=== PATIENT | male | born 1945 | race Caucasian/White ===

== ENCOUNTER 2017-02-15 08:15 | Day surgery (SDC) | payer OTHER ==
[2017-02-15] VITALS (9 sets, daily range): BP systolic 113–126; BP diastolic 80–86; PULSE 92–104; RESP 16; TEMP 97–97.8; O2SAT 95–96
[~2017-02-15] VITALS: Ht 175.3 cm; Wt 68.9 kg
[2017-02-15] MEDS ORDERED: SODIUM CHLORID 0.9% 500 ML INJ 500 ML IV SCH (09:00)
[2017-02-15] MEDS ORDERED: ATOR40TA16 PO (09:03)
[2017-02-15] MEDS ORDERED: APIX5TAB PO (09:03)
[2017-02-15] MEDS ORDERED: CHLO25TA2 PO (09:03)
[2017-02-15] MEDS ORDERED: FISHCAP4 PO (09:03)
[2017-02-15] MEDS ORDERED: LISI40TA PO (09:03)
[2017-02-15] MEDS ORDERED: METO50TA PO (09:03)
[2017-02-15] MEDS ORDERED: LORazepam 1 MG TAB SL SCH (09:30)
[2017-02-15] MEDS ORDERED: METOPROLOL TARTRATE 25 MG TAB PO PRN (09:45)
[2017-02-15] MEDS ORDERED: POVIDONE IODINE 5% (ANTISEPSIS KIT) 4 APPLICATIONS EACH NARE PRN (09:45)
[2017-02-15] MEDS ORDERED: INSULIN HUMAN REGULAR 1,000 UNITS/10 ML VIAL SQ PRN (09:45)
[2017-02-15] MEDS ORDERED: CHLORHEXIDINE GLUCONATE 2 % 1 PACK (2 CLOTHS) TOPICAL PRN (09:45)
[2017-02-15] MEDS ORDERED: LACTATED RINGER'S 1000 ML IV PRN (09:45)
[2017-02-15] MEDS ORDERED: SODIUM CHLORID 0.9% 500 ML IV PRN (09:45)
[2017-02-15 10:15] LABS: AUTOMATED NEUTROPHIL # 3.2 TH/MM3 (1.8-7.7); BASOPHIL # 0.1 TH/MM3 (0-0.2); BASOPHIL % 2.2 % (0.0-2.0); EOSINOPHIL % 0.8 % (0.0-4.0); HEMO FLAGS DIFF FINAL; LYMPH % 25.4 % (9.0-44.0); LYMPHOCYTE # 1.4 TH/MM3 (1.0-4.8); MEAN CELL VOLUME 88.6 FL (80.0-100.0); MEAN CORPUSCULAR HEMOGLOBIN 30.4 PG (27.0-34.0); MEAN CORPUSCULAR HGB CONC 34.4 % (32.0-36.0); MONO % 15.2 % (0.0-8.0); NEUT % 56.4 % (16.0-70.0); PLATELET COUNT 162 TH/MM3 (150-450); RED BLOOD COUNT 5.54 MIL/MM3 (4.50-5.90); RED CELL DISTRIBUTION WIDTH 15.3 % (11.6-17.2); WHITE BLOOD COUNT 5.6 TH/MM3 (4.0-11.0)
[2017-02-15 10:31] LABS: INTERNATIONAL NORMALIZED RATIO 1.1 RATIO; PROTHROMBIN TIME - PATIENT 11.7 SEC (9.8-11.6)
[2017-02-15 10:32] LABS: APTT (PATIENT) 19.7 SEC (24.3-30.1)
[2017-02-15 10:44] LABS: BICARBONATE 29.7 MEQ/L (21.0-32.0)
[2017-02-15 10:45] LABS: POTASSIUM 4.7 MEQ/L (3.5-5.1)
[2017-02-15] MEDS ORDERED: HEPARIN-D5W 25,000 U/250 ML 250 ML ONE (11:02)
[2017-02-15] MEDS ORDERED: ISOPROTERENOL HCL 1 MG/5 ML AMP ONE (11:02)
[2017-02-15] MEDS ORDERED: HEPARIN SODIUM - IV 10,000 UNITS/10 ML VIAL ONE (11:03)
[2017-02-15] MEDS ORDERED: PROTAMINE SULFATE 50 MG/5 ML VIAL ONE (11:03)
[2017-02-15] MEDS ORDERED: LEVOFLOXACIN 500 MG PREMIX INJ 100 ML IV ONE (11:20)
[2017-02-15] MEDS ORDERED: HEPARIN-NS/PF INJ 1,500 ML ONE (11:33)
[2017-02-15] MEDS ORDERED: FUROSEMIDE 40 MG/4 ML VIAL ONE (13:52)
--- NOTE | 2017-02-15 14:10 | CATHPROC ---
reMail HIS Report Study Information Study Number Admission Scheduled Start Study Start [id number] Feb 15 2017 8:15AM 02/15/2017 Feb 15 2017 10:41AM [employer] Electrophysiology Study Admit Source Facility Department Other [facility] Physician and Clinical Staff Initial Mika Abdi Artificial Pearl Maker Radha Gongora,VISUAL MERCHANDISING ASSOCIATE TECH2 Artificial Pearl Maker Yaima Coburn,MACHINE WOODWORKING SANDER Other Anesthesia, LOCOMOTIVE FIRER/FIREMAN Recorder Barbara Carrizales,ROSAMARIA Recorder Jessica Wood RN Scrub Jay Harding,RT(R) Procedures Performed Procedure Location (Site) Vessel Name Ablation Procedure Cardioversion ICE CATHETER INSERT RA Atruim RF Ablation LT. ATRIUM LT. ATRIUM Equipment Time Assistant Teaching Professor Description Size Mfg Part Number Used/Scraped NEEDLE, TRANSSEPTAL NRG 98 10:52 [facility] [id number] Used C1 [employer]/ EP 10:52 KIT, TRANSDUCER / AFIB [id number] Used PACER [id number] CATHETER, TACTICATH ABLAT BUNDLE 10:52 BUND[facility] Used 65 BUNDLE *[id number]- BUNDLE [id number] CATHETER, FR7 OPTIMA SPIRAL 10:52 BUNDLE-[facility] FR7 *[id number] Used BUNDLE BUNDLE [id number] 10:52 BUNDLE-[facility] CATHETER, JSN, QUAD BUNDLE FR 5 *[id number]- Used BUNDLE [id number] 10:52 BUNDLE-[employer]IA CATHETER, JSN, QUAD BUNDLE FR 5 *[id number]- Used BUNDLE [id number] SET, COOL POINT TUBING 10:52 BUNDLE-[facility]ICIA *[id number]- Used BUNDLE BUNDLE SHEATH, FR8.5 STEERABLE SM 10:52 BUNDLE-[facility]ICIA 71CM [id number] Used 71CM BUNDLE COVER, TRANSDUCER CABLE 10:52 [employer] [id number] Used ACUNAV 10:52 CORDIS/PACER SHEATH, FR10 KRYSTAL 11CM FR 10 [id number] Used 10:52 CORDIS/PACER SHEATH, FR9 KRYSTAL 11CM FR 9 [id number] Used 11:45 CORDIS/PACER SHEATH, FR9 KRYSTAL 11CM FR 9 [id number] Used [id number] 10:52 [employer] INDUSTRIES PACK, CCL CUSTOM * Used *[id number] 10:52 MEDLINE PACER ZAFAR, LIMB * 7500 *[id number] Used [id number] 10:52 [facility] MEDICAL SHEATH, FR4.5 PRELUDE 11CM FR 4.5 Used [id number] 10:52 NAMIC TUBING, HIGH PRESSURE 48" 48" Used *[id number] 10:52 NAMIC TUBING, HIGH PRESSURE 48" 48" Used *[id number] 10:52 [facility] BLANKET,WARM AIR CCL * Used *[id number] 12:18 [facility] MEDICAL CATHETER, JSN, QUAD FR 5 Used *[id number] 10:52 [facility] MEDICAL ELECTRODE KIT, SETH X SURFACE * [id number] Used [id number] 10:52 [facility] MEDICAL SHEATH, EPS, FR6 FAST CATH FR 6 Used *[id number] 10:52 [facility] MEDICAL SHEATH, EPS, FR7 FAST CATH FR 7 [id number] Used 207102 10:52 [facility] MEDICAL SHEATH, EPS, FR8 FAST CATH FR 8 Used *[id number] CATHETER, ACUNAV FR10 ICE [id number] 12:11 ROBERTO FR 10 Used (ROBERTO) *[id number] [facility] PAD, ELECTROSURGICAL 10:52 * [id number] *[id number] Used SURGICAL GROUNDING (BLUE) History: Allergies Allergy Reaction diltiazem Labs Hgb (g/dl) Hct (%) RBC (MIL/MM3) WBC (l/cumm) Platelets (thousands) 11.60-17.00 35.00-51.00 4.00-5.90 4.00-11.00 150.00-450.00 16.0 49 5.5 5.6 162 Glucose (mg/dl) BUN (mg/dl) Creatinine (mg/dl) BUN:Creatinine (1:x) 74.00-106.00 7.00-18.00 0.50-1.30 10.00-20.00 80 21 0.9 23.3 Na (meq/l) K (meq/l) 136.00-145.00 3.50-5.10 137 4.7 INR (PTT:PT) 0.90-1.10 1.1 Medication Medication Total Dose (Bolus/Oral) Medication Total Dosage/Unit 1% XYLOCAINE 40 mL HEPARIN 64950 units PROTAMINE 40 mg Medications (Bolus/Oral) Medication Time Given Dosage/Unit Administered By Reason 02/15/2017 12:06:15 1% XYLOCAINE 20 mL Mika Dumont PM 20 mL 1% XYLOCAINE given in lab by Mika Dumont in Left Groin via Subcutaneous. 02/15/2017 12:10:00 1% XYLOCAINE 20 mL Mika Dumont PM 20 mL 1% XYLOCAINE given in lab by Mika Dumont in Right Groin via Subcutaneous. 02/15/2017 12:21:41 HEPARIN 8000 units Anesthesia, LOCOMOTIVE FIRER/FIREMAN As per physicians verbal order PM 8000 units HEPARIN given in lab by Anesthesia, LOCOMOTIVE FIRER/FIREMAN via Peripheral IV. Ordered by Mika Dumont. Reas on: As per physicians verbal order. 02/15/2017 12:38:03 HEPARIN 4000 units Anesthesia, LOCOMOTIVE FIRER/FIREMAN As per physicians verbal order PM 4000 units HEPARIN given in lab by Anesthesia, LOCOMOTIVE FIRER/FIREMAN via Peripheral IV. Ordered by Mika Dumont. Reas on: As per physicians verbal order. 02/15/2017 12:49:35 HEPARIN 2000 units Anesthesia, LOCOMOTIVE FIRER/FIREMAN As per physicians verbal order PM 2000 units HEPARIN given in lab by Anesthesia, LOCOMOTIVE FIRER/FIREMAN via Peripheral IV. Ordered by Mika Dumont. Reas on: As per physicians verbal order. PROTAMINE 02/15/2017 1:59:46 PM 40 mg Anesthesia, LOCOMOTIVE FIRER/FIREMAN 40 mg PROTAMINE given in lab by Anesthesia, LOCOMOTIVE FIRER/FIREMAN. Ordered by Mika Dumont. Medication (Drip) Medication Time Given Dosage/Unit Concentration/Unit Diluent (ml) Solution 02/15/2017 12:38:31 HEPARIN DRIP 1000 units/hr 59727 units 250 D5W PM 1000 units/hr HEPARIN DRIP given in lab by Anesthesia, LOCOMOTIVE FIRER/FIREMAN via Peripheral IV. Pump/Drip Flow = 10 ml /hr using D5[place] [address] units in 250 ml. Ordered by Mika Dumont. Reason: As per physicians verbal order. ISUPREL 02/15/2017 1:30:42 PM 20 mcg/min 1 mg 250 NaCl .9 20 mcg/min ISUPREL given in lab by Anesthesia, LOCOMOTIVE FIRER/FIREMAN in Right Forearm via Peripheral IV. Pump/Drip Daquan w = 300 ml/hr using NaCl .9 with a concentration of 1 mg in 250 ml. Ordered by Hanscy. Julia Reason: As per physicians verbal order. ISUPREL DRIP STOPPED 02/15/2017 1:38:01 PM 20 units/hr 0 20 units/hr ISUPREL DRIP STOPPED given in lab by Anesthesia, LOCOMOTIVE FIRER/FIREMAN via Peripheral IV. Pump/Drip Flow = 0 ml/hr using [Solution Name]. Ordered by Mika Dumont. Reason: As per physicians verbal order. 02/15/2017 11:35:15 LEVAQUIN 100 mL/hr 500 100 NaCl .9 AM 100 mL/hr LEVAQUIN given in lab by Anesthesia, LOCOMOTIVE FIRER/FIREMAN via Peripheral IV. Pump/Drip Flow = 0 ml/hr using NaCl .9 with a concentration of 500 in 100 ml. Ordered by Mika Dumont. Reason: As per physicians verbal order. Initial Case Assessment Cardiovascular HR Rhythm NIBP Chest Pain 97 af 158/95 0 Edema Present Skin color Skin None Normal Warm Dry Circulatory - Right Pulses Dorsalis Pedis 2 Scale (0,1,2,3,4,d) Circulatory - Left Pulses Dorsalis Pedis 2 Scale (0,1,2,3,4,d) Circulatory - Lower Extremities Color Lower Right Color Lower Left Normal Normal Neurological State Oriented to time-place- Alert Moves all extremities person Respiration - General Respiration Rate SpO2 (%) (B/min) 20 95 Final Case Assessment Cardiovascular HR Rhythm NIBP Chest Pain 93 sr 145/92 0 Edema Present Skin color Skin None Normal Warm Dry Circulatory - Right Pulses Dorsalis Pedis 2 Scale (0,1,2,3,4,d) Circulatory - Left Pulses Dorsalis Pedis 2 Scale (0,1,2,3,4,d) Circulatory - Lower Extremities Color Lower Right Color Lower Left Normal Normal Neurological State Oriented to time-place- Lethargic Moves all extremities person Respiration - General Respiration Rate SpO2 (%) O2 (lpm) (B/min) 16 100 4 Chronological Log Time Study Chronological Log 11:10:36 Patient arrived via Bed. 11:15:40 Patient Name, D.O.B, / Armband Verified By R.N. 11:15:41 Consent signed by the physician and the patient and verified by the [facility] staff. 11:15:43 Pre-op and post- op instructions given; patient acknowledges understanding of instructions. 11:15:53 Verbal Stimulation=2 Physical Stimulation=2 Airway=2 Respiration=2 TOTAL=8. (0=absent, 1=li mited, 2=present) 11:19:07 Anesthesia at bedside. Assumes care of patient. 11:19:13 Presedation assessment performed by [facility] RN. 11:19:16 Patient has been NPO for More than 6Hrs. 11:20:40 Patient has been NPO for More than 6Hrs. 11:21:13 History and physical on the chart or being dictated. 11:21:47 Skin Breakdown- 11:21:51 Patient Warmer Placed on the Table. 11:21:54 Disposable Defibrillator Pads Placed On Patient. 11::59 Feroz Prominences Protected 11:22:02 A # 20 IV was noted in the Forearm (left). Grade = 0 0.9ns kvo 11:22:10 A # 20 IV was noted in the Forearm (right). Grade = 0 0.9ns kvo 11:24:25 Table restraints applied according to hospital policy Assessment: Initial Case, HR=97 BPM, Rhythm=af, WBGI=886/95 mmhg, Chest Pain=0, Edema=None, Col or=Normal, Skin = Warm, Dry Right Pulses: Mayur Ped=2 Left Pulses: Mayur Ped=2 11:26:21 Lower Right Extremities: Color=Normal Lower Left Extremities: Color=Normal Neurological: State=Alert, Ox3, [place] Respiration: Resp=20 B/min, SpO2=95 % 100 mL/hr LEVAQUIN given in lab by Anesthesia, LOCOMOTIVE FIRER/FIREMAN via Peripheral IV. Pump/Drip Flow = 0 ml/hr using NaCl .9 with 11:35:15 a concentration of 500 in 100 ml. Ordered by Mika Dumont. Reason: As per physicians verbal or addy. 11:47:52 Bilateral groins prepped with 2% chlorhexidine, and draped after a 3 minute waiting time. 11:48:10 MD paged 11:50:00 MD responded 11:59:00 MD arrived. Time Out. Correct patient, procedure, procedure equipment, site and side verified with physicia n present. Time 12:03:00 concurred by MD, individual staff and LOCOMOTIVE FIRER/FIREMAN. Time Out #2 - Consents verified, patient in correct position, all results are labled and displa yed, safety precautions 12:03:14 taken, antibiotics administered. Time out concurred by MD, individual staff and LOCOMOTIVE FIRER/FIREMAN in procedu re 12:03:27 Case Start 12:03:34 VANNESSA in progress 12:06:06 VANNESSA complete. 12:06:15 20 mL 1% XYLOCAINE given in lab by iMka Dumont in Left Groin via Subcutaneous. 12:07:15 Vascular access was obtained in the Fem Vein (left). 12:07:19 Vascular access was obtained in the Fem Vein (left). 12:07:21 Vascular access was obtained in the Fem Vein (left). 12:07:23 Vascular access was obtained in the Fem Art (left). A SHEATH, FR4.5 PRELUDE 11CM FR 4.5 was advanced into the Fem Art (left) using the Modified Louise ilana technique. 12:07:33 0.9ns pressure bag connected for bp monitoring. 12:08:00 A SHEATH, EPS, FR6 FAST CATH FR 6 was advanced into the Fem Vein (left) using the Modified Seldinger technique. 12:08:09 A SHEATH, EPS, FR7 FAST CATH FR 7 was advanced into the Fem Vein (left) using the Modified Seldinger technique. 12:08:17 A SHEATH, FR10 KRYSTAL 11CM FR 10 was advanced into the Fem Vein (left) using the Modified S eldinger technique. 12:10:00 20 mL 1% XYLOCAINE given in lab by Mika Dumont in Right Groin via Subcutaneous. 12:10:59 Vascular access was obtained in the Fem Vein (right). 12:11:02 A SHEATH, EPS, FR8 FAST CATH FR 8 was advanced into the Fem Vein (right) using the Modified Seldinger technique. A CATHETER, JSN, QUAD BUNDLE FR 5 was advanced vis Fem Vein (left) and placed in the CS. Placem ent was visually 12:11:53 confirmed under fluoroscopy. A CATHETER, JSN, QUAD BUNDLE FR 5 was advanced vis Fem Vein (left) and placed in the HIS. Place ment was 12:12:08 visually confirmed under fluoroscopy. A SHEATH, FR8.5 STEERABLE SM 71CM BUNDLE 71CM was exchanged in the Fem Vein (right). This was n ecessary in 12:12:38 order for catheter support. 12:13:18 CATHETER, ACUNAV FR10 ICE (ROBERTO) FR 10 Was Postioned. A CATHETER, JSN, QUAD FR 5 was advanced vis Fem Vein (right) and placed in the HIS. Placement w as visually 12:18:12 confirmed under fluoroscopy. 1st quad removed and replaced. 12:20:59 Raymond in 12:21:04 A eps was advanced to the right atrium and passed through the septal wall to the left atriu m. 12:21:08 Raymond out 8000 units HEPARIN given in lab by Anesthesia, LOCOMOTIVE FIRER/FIREMAN via Peripheral IV. Ordered by Mika Dumont . Reason: As per 12:21:41 physicians verbal order. A CATHETER, FR7 OPTIMA SPIRAL BUNDLE FR7 was advanced vis Fem Vein (right) and placed in the LA . Placement 12::19 was visually confirmed under fluoroscopy. mapping in progress. 12::38 Activated Clotting Time Drawn 12:33:17 Activated Clotting Time redrawn 12:33:37 Reference ECG taken 12:34:36 mapping complete.Catheter was removed A CATHETER, TACTICATH ABLAT 65 BUNDLE was advanced vis Fem Vein (right) and placed in the LA. P lacement was 12:35:03 visually confirmed under fluoroscopy. 12:36:26 RF Ablation of the LT. ATRIUM with a CATHETER, TACTICATH ABLAT 65 BUNDLE. 12:37:04 ACT (Normal Range 90-180) = 266 4000 units HEPARIN given in lab by Anesthesia, LOCOMOTIVE FIRER/FIREMAN via Peripheral IV. Ordered by Mika Dumont . Reason: As per 12:38:03 physicians verbal order. 1000 units/hr HEPARIN DRIP given in lab by Anesthesia, LOCOMOTIVE FIRER/FIREMAN via Peripheral IV. Pump/Drip Flow = 10 ml/hr using 12:38:31 D5[place] [address] units in 250 ml. Ordered by Mika Dumont. Reason: As per mesha canales verbal order. 12:44:58 Activated Clotting Time Drawn 12:47:42 ACT (Normal Range 90-180) = 329 2000 units HEPARIN given in lab by Anesthesia, LOCOMOTIVE FIRER/FIREMAN via Peripheral IV. Ordered by Mika Dumont . Reason: As per 12:49:35 physicians verbal order. 12:59:40 Activated Clotting Time Drawn 13:08:32 ACT (Normal Range 90-180) = 350 13:26:54 Activated Clotting Time Drawn 13:28:29 ECG rhythm of AF noted. Patient cardioverted at 200 joules. Success sync. Converted to sr. 20 mcg/min ISUPREL given in lab by Anesthesia, LOCOMOTIVE FIRER/FIREMAN in Right Forearm via Peripheral IV. Pump/Dr ip Flow = 300 ml/hr 13:30:42 using NaCl .9 with a concentration of 1 mg in 250 ml. Ordered by Mika Dumont. Reason: As per physicians verbal order. 13:34:12 ACT (Normal Range 90-180) = 349 20 units/hr ISUPREL DRIP STOPPED given in lab by AnesthesiaMARK via Peripheral IV. Pump/Drip Flow = 0 ml/hr 13:38:01 using [Solution Name]. Ordered by Mika Dumont. Reason: As per physicians verbal order. 13:49:44 Catheter(s) removed without difficulty A SHEATH, FR9 KRYSTAL 11CM FR 9 was exchanged in the Fem Art (right). This was necessary in orde r to minimize 13:51:39 site leakage. 13:52:57 Sheath(s) left in place, sutred, 0.9ns connected and will be removed in Holding Area 13:53:18 Sterile dressing applied to site 13:55:55 Sterile dressing applied to site 13:56:51 Case End 13:59:46 40 mg PROTAMINE given in lab by AnesthesiaMARK. Ordered by Mika Dumont. 14:00:51 Defibrillator and ground pads removed. Skin intact. 14:04:39 PACU called. Spoke to Madiha 14:05:27 Bedside Report will be given. 14:06:18 Activated Clotting Time Drawn 14:07:00 No case complications noted. 14:08:00 Ablation procedure performed: AFIB. 14:08:06 EP Procedure was performed. Assessment: Final Case, HR=93 BPM, Rhythm=sr, MLHB=281/92 mmhg, Chest Pain=0, Edema=None, [place] r=Normal, Skin = Warm, Dry Right Pulses: Mayur Ped=2 Left Pulses: Mayur Ped=2 14:08:16 Lower Right Extremities: Color=Normal Lower Left Extremities: Color=Normal Neurological: State=Lethargic, Ox3, [place]OR[place] Respiration: Resp=16 B/min, TcN1=484 %, O2=4 lpm 14:09:30 ACT (Normal Range 90-180) = 140 14:12:32 Patient moved to stretcher End Study - Contrast Media Used In Study Contrast Total Opened (mL) Total Used (mL) Total Wasted (mL) Unspecified 0 0 0 End Study - Maximum Contrast Load Max Contrast Load (mL) 382.3 End Study - Radiation Exposure Fluoro Time (minutes) 3.7 End Study - Patient Disposition Complications Transferred To Interventional Outcome No Telemetry Bed successful
[2017-02-15] MEDS ORDERED: DO NOT ADM ANY ANTICOAGULANT DRUGS PRN (14:24)
[2017-02-15] MEDS ORDERED: BACITRACIN OINT 0.9 GM PKT TOP ONE (14:30)
[2017-02-15] MEDS ORDERED: oxyCODONE/ACETAMINOPHEN 5 MG/325 MG TAB PO PRN (14:30)
[2017-02-15] MEDS ORDERED: LORazepam 2 MG/ML VIAL IV PUSH PRN (14:30)
[2017-02-15] MEDS ORDERED: ATROPINE SULFATE 1 MG/ML VIAL IV PUSH PRN (14:30)
[2017-02-15] MEDS ORDERED: ONDANSETRON HCL 4 MG/2 ML VIAL IV PUSH PRN (14:30)
[2017-02-15] MEDS ORDERED: SODIUM CHLOR 0.9% 250 ML INJ 250 ML IV PRN (14:30)
[2017-02-15] MEDS ORDERED: LIDOCAINE HCL 1% 50 ML VIAL INFIL PRN (14:30)
[2017-02-15] MEDS ORDERED: METOCLOPRAMIDE HCL 10 MG/2 ML VIAL IV PUSH PRN (14:30)
--- NOTE | 2017-02-15 14:30 | PD.CARD ---
Atrial Fibrillation Ablation PROCEDURE DATE: Feb 15, 2017 PROCEDURES PERFORMED: 1. Electrophysiology study on Isuprel infusion 2. CS cannulation 3. 3-D mapping 4. Transseptal approach 5. Right and left heart catheterization 6. Intracardiac echo 7. Radiofrequency ablation of atrial fibrillation 8. Pulmonary vein isolation 9. Posterior wall ablation 10. Mitral valve isolation 11. Mitral line creation 12. Left atrial tachycardia ablation 13. Roof line creation 14. Floor line creation 15. Anterior wall ablation 16. Cardioversion INDICATIONS FOR THE PROCEDURE Mr. Bose is a 71-year-old male with atrial fibrillation, very symptomatic, on anticoagulation, referred for electrophysiology study and ablation. The risks, the nature and the benefits of the procedure were clearly stated to him. The risks include pneumothorax, cardiac perforation, stroke, need for open heart surgery and even . The patient understood and agreed to proceed. DESCRIPTION OF THE PROCEDURE IN DETAIL As written informed consent was obtained prior to esophageal echocardiogram, the patient was kept on the table where he was prepped and draped in the usual sterile fashion. Conscious sedation was initiated and maintained throughout the procedure by the anesthesiologist. Once sedation was verified, the right and left inguinal areas were anesthetized with 2% Xylocaine. Using modified Seldinger technique, the left femoral vein was cannulated on three occasions, three guidewires were advanced. Over the wire a 6, 7 and a 10-Lithuanian Hemaquet were advanced. Then the left femoral artery was cannulated on one occasion, one guidewire was advanced. Over the wire a 4-Lithuanian Hemaquet was advanced. Then the right femoral vein was cannulated on one occasion, one guidewire was advanced. Over the wire a 8-Lithuanian Hemaquet was advanced. Then under fluoroscopic guidance through the 6 and 7-Lithuanian Hemaquet, two 5-Lithuanian Drake curved quadripolar electrophysiology catheters were advanced and placed around the His as well as coronary sinus. Basic interval was measured. The patient was in atrial fibrillation. Through the 10-Lithuanian Hemaquet, a [employer] Hernandez AcuNav intracardiac echo catheter was advanced and placed at the right atrium. Multiple view was obtained. There was no pericardial effusion, pulmonary vein was seen, atrial septal was visualized. Then the 8-Lithuanian Hemaquet in the right femoral vein was exchanged for [employer] transseptal sheath that was placed all the way to the superior vena cava. Through the sheath a Kiki needle was advanced, then the sheath, the dilator and the needle were progressed until foci engaged. Once engaged, the needle was advanced. RF was delivered for 2 seconds. I was able to cross into the left atrium. Once the needle crossed, the dilator was advanced. Once the dilator crossed, the sheath was advanced. Once the sheath crossed, the dilator and the needle were removed. At this point I did flood the system and fluid movement was seen in the left atrium the indicates the sheath is in good position. The patient already received 8,000 units of heparin. The goal is to keep an ACT around 350 during ablation. Then through the sheath a St. Vern 20 pulse circumferential catheter was advanced. Using Powerset endocardial solution mapping system, a two- dimensional configuration of the left atrium was obtained. Points were taken at the left superior and inferior veins, right superior and inferior veins, mitral valve, and appendages. Then through the sheath a St. Vern TactiCath 65cm 3.5mm irrigated tipped mapping and radiofrequency ablation catheter was advanced. Esophageal probe was placed temperature monitoring during ablation. When it increased to 0.5 degrees Celsius above baseline, I moved to a different area of the atrium. First I did isolate the left superior and inferior vein. I did make a big chuloonawick around the veins. Posterior was ablated. Then a roof line was created, a floor line was created, a mitral line was isolated, then the mitral valve was isolated. At that point the patient was in left atrial tachycardia. I did create a line from the floor to the roof area, passing by the left atrial appendage. Then the right superior and inferior veins were isolated. I did remap the atrium. There is no significant signal in the atrium. At this point I decided to proceed with cardioversion. A 200 sync biphasic joule was delivered that converted the patient into sinus rhythm. At that point I did advance the circumferential catheter again into the vein. There was no signal into the vein, pacing from the vein showed no conduction to the atrium. Isuprel infusion was initiated at 20 mcg for over 10 minutes. No tachyarrhythmia was induced, post Isuprel no tachyarrhythmia was induced. At that point the procedure was complete. All catheters were removed, atrial septal sheath was exchanged for 9-Lithuanian Hemaquet, intracardiac echo showed no pericardial effusion. There is still good flow in the pulmonary vein. The patient is going to be transferred to the recovery room. No incident report. The patient tolerated the procedure. Blood loss was minimal. FINDINGS 1. Electrocardiogram: At baseline the patient was in atrial fibrillation, post procedure the patient was in sinus rhythm. 2. Basic interval: Base cycle length was around 680. Post ablation she was around 940 milliseconds. AH at 120 and HV at 60 milliseconds. 3. Tachyarrhythmia: Atrial fibrillation was mapped and ablated. Atrial tachycardia was ablated. The ablation was successful. CONCLUSION Successful electrophysiology study, mapping, radiofrequency ablation of atrial fibrillation, left atrial tachycardia, pulmonary vein isolation, posterior ablation, mitral valve isolation, mitral line creation, roof line creation, floor line creation, left atrial tachycardia, and cardioversion. COMMENTS AND RECOMMENDATIONS The patient is going to be transferred to the telemetry unit. Will be observed and when stable can be discharged home. Mika Dumont MD Feb 15, 2017 14:30
[2017-02-15] MEDS ORDERED: PILL SPLITTER OTHER PRN (15:00)
--- NOTE | 2017-02-15 15:58 | EKG ---
Date Performed: 02/15/2017 Time Performed: 14:47:28 PTAGE: 71 years EKG: Sinus rhythm WITH FIRST DEGREE AV BLOCK LOW QRS VOLTAGE IN EXTREMITY LEADS SEPTAL MYOCARDIAL INFARCTION , PROBABL Y OLD POSSIBLE INFERIOR MYOCARDIAL INFARCTION , OF INDETERMINATE AGE ABNORMAL ECG PREVIOUS TRACING : 02/15/2017 09.32 Compared to prior tracing no significant change DOCTOR: Renaldo Mcpherson Interpretating Date/Time 02/15/2017 15:58:25
--- NOTE | 2017-02-15 16:25 | EKG ---
Date Performed: 02/15/2017 Time Performed: 09:32:38 PTAGE: 71 years EKG: Atrial fibrillation. Possible inferior infarct - age undetermined Low QRS voltages in limb leads Abnormal ECG NO PREVIOUS TRACING DOCTOR: Renaldo Mcpherson Interpretating Date/Time 02/15/2017 16:23:42
[2017-02-15] MEDS: APIXABAN 5 MG TABLET PO SCH (20:06)
[2017-02-15] MEDS: oxyCODONE/ACETAMINOPHEN 5 MG/325 MG TAB PO PRN (20:06)
[2017-02-15] MEDS ORDERED: ATORVASTATIN 40 MG TAB PO SCH (21:00)
[2017-02-16] VITALS (10 sets, daily range): BP systolic 122–133; BP diastolic 91–92; PULSE 82–96; RESP 16–18; TEMP 98.1–98.7; O2SAT 95–97
[2017-02-16] MEDS: oxyCODONE/ACETAMINOPHEN 5 MG/325 MG TAB PO PRN (02:32)
[2017-02-16 06:26] LABS: APTT (PATIENT) 23.6 SEC (24.3-30.1); PROTHROMBIN TIME - PATIENT 10.8 SEC (9.8-11.6)
--- NOTE | 2017-02-16 08:14 | PD.CARD.PN ---
Subjective Subjective Remarks Feels okay Objective Medications Current Medications Medications (Trade) Dose Ordered Sig/Alem Route Start Time Stop Time Status Last Admin Sodium Chloride 500 ml @ 30 mls/hr [id number] IV 02/15/17 09:00 (Ativan) 1 mg ANIMAL NURSE SL 02/15/17 09:30 02/18/17 09:29 Lactated Ringer's 1,000 ml @ 30 mls/hr Q24H PRN IV 02/15/17 09:45 02/18/17 09:44 Sodium Chloride 500 ml @ 30 mls/hr [id number] PRN IV 02/15/17 09:45 02/18/17 09:44 (Lopressor) 25 mg ANIMAL NURSE PRN PO 02/15/17 09:45 02/18/17 09:44 (Betadine 5% Antisepsis Kit) 1 applic ANIMAL NURSE PRN EACH NARE 02/15/17 09:45 02/18/17 09:44 (Chlorhexidine 2% Cloth) 3 pack ANIMAL NURSE PRN TOPICAL 02/15/17 09:45 02/18/17 09:44 (NovoLIN R INJ) See Protocol Table ... ANIMAL NURSE PRN SQ 02/15/17 09:45 02/18/17 09:44 (Percocet 5-325 Mg) 1 tab Q4H PRN PO 02/15/17 14:30 (Percocet 5-325 Mg) 2 tab Q4H PRN PO 02/15/17 14:30 02/16/17 02:32 (Ativan Inj) 0.5 mg UNSCH PRN IV PUSH 02/15/17 14:30 02/16/17 14:29 (Atropine Inj) 0.5 mg UNSCH PRN IV PUSH 02/15/17 14:30 Sodium Chloride 250 ml @ 500 mls/hr ONCE PRN IV 02/15/17 14:30 02/16/17 14:29 (Reglan Inj) 10 mg Q4H PRN IV PUSH 02/15/17 14:30 (Zofran Inj) 4 mg Q4H PRN IV PUSH 02/15/17 14:30 (Xylocaine 1% Inj (50 ml)) 10 ml UNSCH PRN INFIL 02/15/17 14:30 02/16/17 14:29 (Eliquis) 5 mg BID PO 02/15/17 21:00 02/15/17 20:06 (Lipitor) 40 mg HS PO 02/15/17 21:00 02/15/17 20:06 (Lopressor) 50 mg DAILY PO 02/16/17 09:00 (Hygroton) 25 mg DAILY PO 02/16/17 09:00 (Prinivil) 40 mg DAILY PO 02/16/17 09:00 Miscellaneous Information ALL NURSING DEPARTME... UNSCH PRN .XX 02/15/17 14:24 02/16/17 14:23 (Pill Splitter) 1 ea UNSCH PRN OTHER 02/15/17 15:00 Vital Signs / I&O Vital Signs Date Time Temp Pulse Resp B/P (MAP) Pulse Ox O2 Delivery O2 Flow Rate FiO2 02/16/17 08:06 98.1 86 18 133/92 (106) 97 02/16/17 07:01 85 02/16/17 06:00 82 02/16/17 05:00 90 02/16/17 04:00 84 02/16/17 03:00 98.7 85 16 122/91 (101) 95 02/16/17 03:00 93 02/16/17 02:00 90 02/16/17 01:00 96 02/16/17 00:00 92 02/15/17 23:00 97.8 99 16 120/86 (97) 96 02/15/17 23:00 101 02/15/17 22:00 96 02/15/17 21:00 102 02/15/17 20:00 104 02/15/17 19:15 102 16 117/85 (96) 96 02/15/17 19:00 96 02/15/17 18:00 98 02/15/17 17:41 97.0 101 16 126/83 (97) 96 02/15/17 17:25 96 20 109/80 (90) 98 Room Air 02/15/17 17:00 97.4 94 17 114/77 (89) 98 Room Air 02/15/17 16:30 82 19 119/69 (86) 98 Nasal Cannula 2 02/15/17 16:00 90 17 110/79 (89) 98 Nasal Cannula 2 02/15/17 15:30 85 16 111/73 (86) 100 Nasal Cannula 2 02/15/17 15:00 83 15 129/77 (94) 98 Nasal Cannula 2 02/15/17 14:45 85 16 120/80 (93) 98 Nasal Cannula 2 02/15/17 14:30 87 15 116/86 (96) 97 Nasal Cannula 2 02/15/17 14:23 97.5 89 16 130/85 (100) 98 Nasal Cannula 2 02/15/17 10:12 93 Room Air 02/15/17 09:19 97.5 92 16 113/80 (91) 95 I/O 02/15/17 02/15/17 02/15/17 02/16/17 02/16/17 02/16/17 07:00 15:00 23:00 07:00 15:00 23:00 Intake Total 260 ml 720 ml Output Total 3000 ml 300 ml Balance -2740 ml 420 ml Intake Oral 260 ml 720 ml Output Urine Total 3000 ml 300 ml Stool Total 0 ml # Voids 4 Physical Exam GENERAL: Well-nourished, well-developed patient. SKIN: Warm and dry. Groin site soft without bruising or bleeding. HEAD: Normocephalic. EYES: No scleral icterus. No injection or drainage. NECK: Supple, trachea midline. No JVD or lymphadenopathy. CARDIOVASCULAR: Regular rate and rhythm without murmurs, gallops, or rubs. RESPIRATORY: Breath sounds equal bilaterally. No accessory muscle use. GASTROINTESTINAL: Abdomen soft, non-tender, nondistended. EXTREMITIES: No cyanosis, or edema. NEUROLOGICAL: Awake, alert, and oriented x 3. Non-focal. Laboratory Laboratory Tests Test 02/15/17 08:40 02/16/17 06:07 White Blood Count 5.6 TH/MM3 Red Blood Count 5.54 MIL/MM3 Hemoglobin 16.9 GM/DL Hematocrit 49.0 % Mean Corpuscular Volume 88.6 FL Mean Corpuscular Hemoglobin 30.4 PG Mean Corpuscular Hemoglobin Concent 34.4 % Red Cell Distribution Width 15.3 % Platelet Count 162 TH/MM3 Mean Platelet Volume 9.0 FL Neutrophils (%) (Auto) 56.4 % Lymphocytes (%) (Auto) 25.4 % Monocytes (%) (Auto) 15.2 % Eosinophils (%) (Auto) 0.8 % Basophils (%) (Auto) 2.2 % Neutrophils # (Auto) 3.2 TH/MM3 Lymphocytes # (Auto) 1.4 TH/MM3 Monocytes # (Auto) 0.9 TH/MM3 Eosinophils # (Auto) 0.0 TH/MM3 Basophils # (Auto) 0.1 TH/MM3 CBC Comment DIFF FINAL Differential Comment Prothrombin Time 11.7 SEC 10.8 SEC Prothromb Time International Ratio 1.1 RATIO 1.0 RATIO Activated Partial Thromboplast Time 19.7 SEC 23.6 SEC Blood Urea Nitrogen 21 MG/DL Creatinine 0.95 MG/DL Random Glucose 80 MG/DL Calcium Level 9.3 MG/DL Sodium Level 137 MEQ/L Potassium Level 4.7 MEQ/L Chloride Level 102 MEQ/L Carbon Dioxide Level 29.7 MEQ/L Anion Gap 5 MEQ/L Estimat Glomerular Filtration Rate 78 ML/MIN Assessment and Plan Problem List: (1) Atrial fibrillation ICD Codes: I48.91 - Unspecified atrial fibrillation Plan: Continue eliquis. Follow-up with Dr. Dumont in 3 weeks. (2) S/P ablation of atrial fibrillation ICD Codes: Z98.890 - Other specified postprocedural states; Z86.79 - Personal history of other diseases of the circulatory system Plan: Normal sinus rhythm on telemetry. Discharge home, follow-up with Dr. Dumont in 3 weeks per my discussion with him. Problem Qualifiers (1) Atrial fibrillation: Qualified Codes: I48.0 - Paroxysmal atrial fibrillation Deepthi Cao Feb 16, 2017 08:14
[2017-02-16] MEDS: APIXABAN 5 MG TABLET PO SCH (08:19)
[2017-02-16] MEDS ORDERED: LISINOPRIL 20 MG TAB PO SCH (09:00)
[2017-02-16] MEDS ORDERED: CHLORTHALIDONE 50 MG TAB PO SCH (09:00)
[2017-02-16] MEDS ORDERED: METOPROLOL TARTRATE 50 MG TAB PO SCH (09:00)
[2017-02-16] MEDS ORDERED: NON-FORMULARY DRUG (Fish Oil-Cholecalciferol (Fish Oil + D3) 1 CAP) PO SCH (09:00)
--- NOTE | 2017-02-16 14:56 | EKG ---
Date Performed: 02/16/2017 Time Performed: 05:33:52 PTAGE: 71 years EKG: Sinus rhythm with 1st degree A-V block Low QRS voltages in limb leads Abnormal ECG PREVIOUS TRACING : 02/15/2017 14.47 Compared to prior tracing no significant change DOCTOR: Renaldo Mcpherson Interpretating Date/Time 02/16/2017 14:55:13
== END 2017-02-16 09:25 | disposition home or self-care (01) ==
LOC: HDOC 08:15 → HDIC 08:16 → HCIN 17:39 → HDOC 02-16 09:25
PROVIDERS: ATTEND Internal Medicine Interventional Cardiology
DX: I48.0 Paroxysmal atrial fibrillation (principal); I47.1 Supraventricular tachycardia; I11.9 Hypertensive heart disease without heart failure; I25.10 Atherosclerotic heart disease of native coronary artery without angina pectoris; I44.0 Atrioventricular block, first degree; E78.5 Hyperlipidemia, unspecified; Z79.01 Long term (current) use of anticoagulants; Z01.818 Encounter for other preprocedural examination; Z01.810 Encounter for preprocedural cardiovascular examination
CPT/HCPCS: 80048; 85002; 85025; 85610; 85730; 86850; 86900; 86901; 92960; 93005; 93613; 93623; 93656; 93662; C1730; C1731; C1732; C1759; C1766; C2630; J1644; J1940; J1956; J2720

== ENCOUNTER 2017-04-12 05:58 | Day surgery (SDC) | payer OTHER ==
[2017-04-12] VITALS (8 sets, daily range): BP systolic 100–128; BP diastolic 57–97; PULSE 74–100; RESP 16–18; TEMP 97.5–98.5; O2SAT 96–99
[~2017-04-12] VITALS: Ht 172.7 cm; Wt 70.1 kg
[~2017-04-12 05:58] MED LIST: APIX5TAB PO; ATOR40TA16 PO; CHLO25TA2 PO; FISHCAP4 PO; LISI40TA PO; METO50TA PO
[2017-04-12] MEDS ORDERED: MULT-65 PO (06:51)
[2017-04-12] MEDS ORDERED: FLEC100T PO (06:51)
[2017-04-12 07:22] LABS: AUTOMATED NEUTROPHIL # 2.7 TH/MM3 (1.8-7.7); BASOPHIL # 0.1 TH/MM3 (0-0.2); BASOPHIL % 2.8 % (0.0-2.0); EOSINOPHIL # 0.1 TH/MM3 (0-0.4); EOSINOPHIL % 1.6 % (0.0-4.0); HEMATOCRIT 49.7 % (39.0-51.0); HEMO FLAGS DIFF FINAL; LYMPH % 25.4 % (9.0-44.0); LYMPHOCYTE # 1.3 TH/MM3 (1.0-4.8); MEAN CELL VOLUME 90.4 FL (80.0-100.0); MEAN CORPUSCULAR HEMOGLOBIN 31.5 PG (27.0-34.0); MEAN CORPUSCULAR HGB CONC 34.9 % (32.0-36.0); NEUT % 53.2 % (16.0-70.0); PLATELET COUNT 184 TH/MM3 (150-450); RED CELL DISTRIBUTION WIDTH 15.3 % (11.6-17.2)
[2017-04-12] MEDS ORDERED: ISOPROTERENOL HCL 1 MG/5 ML AMP ONE (07:30)
[2017-04-12] MEDS ORDERED: PROTAMINE SULFATE 50 MG/5 ML VIAL ONE (07:30)
[2017-04-12] MEDS ORDERED: HEPARIN SODIUM - IV 10,000 UNITS/10 ML VIAL ONE (07:30)
[2017-04-12] MEDS ORDERED: HEPARIN-D5W 25,000 U/250 ML 250 ML ONE (07:30)
[2017-04-12] MEDS ORDERED: HEPARIN-NS/PF INJ 2,000 ML ONE (07:43)
[2017-04-12 07:49] LABS: BICARBONATE 29.7 MEQ/L (21.0-32.0)
[2017-04-12 07:50] LABS: POTASSIUM 4.6 MEQ/L (3.5-5.1)
[2017-04-12 08:55] LABS: APTT (PATIENT) 20.8 SEC (24.3-30.1); INTERNATIONAL NORMALIZED RATIO 1.1 RATIO; PROTHROMBIN TIME - PATIENT 11.3 SEC (9.8-11.6)
--- NOTE | 2017-04-12 10:21 | CATHPROC ---
[employer] HIS Report Study Information Study Number Admission Scheduled Start Study Start [id number] Apr 12 2017 5:58AM 04/12/2017 Apr 12 2017 7:32AM [facility] Electrophysiology Study Admit Source Facility Department Other [facility] Physician and Clinical Staff Initial Mika Abdi Founder And Ceo Jay Harding,RT(R) Founder And Ceo Yaima Coburn,SENIOR PUBLICATIONS SPECIALIST Other Anesthesia, TRIAGE NURSE Other Terrie Carpenter BSRN Recorder Jessica Wood RN Recorder Terrie Carpenter BSRN Scrub Madiha Torres,RT(R) TECH2 Procedures Performed Procedure Location (Site) Vessel Name Ablation Procedure Cardioversion ICE CATHETER INSERT RA Atruim RF Ablation LT. ATRIUM LT. 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 CARTO 3 BIOSENSE HENRIQUEZ 07:57 SET, TUBING COOLFLOW * [id number] Used INC. [employer]. SCIENTIFIC/ EP 08:01 KIT, TRANSDUCER / AFIB [id number] Used PACER COVER, TRANSDUCER CABLE 08:01 [employer] 612-113 Used ACUNAV 08:01 CORDIS/PACER SHEATH, FR10 KRYSTAL 11CM FR 10 [id number] Used 08:01 CORDIS/PACER SHEATH, FR9 KRYSTAL 11CM FR 9 [id number] Used [id number] 08:01 [employer] PACK, CCL CUSTOM * Used *[id number] 08:01 [employer] PACER ZAFAR, LIMB * 2530 *[id number] Used [id number]- 08:01 Rabbit MEDICAL SHEATH, FR4.5 PRELUDE 11CM FR 4.5 Used [id number] 08:01 NAMIC TUBING, HIGH PRESSURE 20" 20" Used *[id number] 08:12 NAMIC TUBING, HIGH PRESSURE 48" 48" Used *[id number] 08:01 NAMIC TUBING, HIGH PRESSURE 48" 48" Used *[id number] 08:01 GARC[employer] MEDICAL BLANKET,WARM AIR CCL * Used *[id number] 08:30 [facility] MEDICAL CATHETER, JSN, QUAD FR 5 Used *[id number] 08:30 [employer] MEDICAL CATHETER, JSN, QUAD FR 5 Used *[id number] 08:01 [facility] [employer] MEDICAL SHEATH, EPS, FR6 FAST CATH FR 6 Used *[id number] 08:01 [employer] MEDICAL SHEATH, EPS, FR7 FAST CATH FR 7 [id number] Used [id number] 08:01 [facility] [employer] MEDICAL SHEATH, EPS, FR8 FAST CATH FR 8 Used *[id number] SHEATH, FR8.5 STEERABLE SM 08:33 [facility] MEDICAL 71CM [id number] Used 71CM SHEATH, FR8.5 STEERABLE SM 08:49 [facility] [employer] 71CM [id number] Used 71CM CATHETER, ACUNAV FR10 ICE [id number] 08:31 ROBERTO FR 10 Used (ROBERTO) *[id number] [facility] PAD, ELECTROSURGICAL 08:01 * [id number] *[id number] Used SURGICAL GROUNDING (BLUE) History: Allergies Allergy Reaction diltiazem History: Risk Factors Hypertension Dyslipidemia Yes Yes Labs Hgb (g/dl) Hct (%) RBC (MIL/MM3) WBC (l/cumm) Platelets (thousands) 11.60-17.00 35.00-51.00 4.00-5.90 4.00-11.00 150.00-450.00 17.0 49 5.5 5 184 Glucose (mg/dl) BUN (mg/dl) Creatinine (mg/dl) BUN:Creatinine (1:x) 74.00-106.00 7.00-18.00 0.50-1.30 10.00-20.00 87 16 1.0 16 Na (meq/l) K (meq/l) Cl (meq/l) CO2 (mmol/L) Ca (mg/dl) 136.00-145.00 3.50-5.10 98.00-107.00 21.00-32.00 8.50-10.10 132 4.6 97 29.7 9.2 INR (PTT:PT) 0.90-1.10 1.1 Medication Medication Total Dose (Bolus/Oral) Medication Total Dosage/Unit 1% XYLOCAINE 40 mL HEPARIN 58324 units PROTAMINE 40 mg Medications (Bolus/Oral) Medication Time Given Dosage/Unit Administered By Reason 1% XYLOCAINE 04/12/2017 8:25:52 AM 20 mL Mika Dumont As per physicians verb al order 20 mL 1% XYLOCAINE given in lab by Mika Dumont in Left Groin via Subcutaneous. Ordered by Diogo Dumont. Reason: As per physicians verbal order. 1% XYLOCAINE 04/12/2017 8:27:28 AM 20 mL Mika Dumont As per physicians verb al order 20 mL 1% XYLOCAINE given in lab by Mika Dumont in Right Groin via Subcutaneous. Ordered by Gloria Dumont. Reason: As per physicians verbal order. HEPARIN 04/12/2017 8:35:45 AM 06123 units Anesthesia, TRIAGE NURSE As per physicians jagruti bal order 06804 units HEPARIN given in lab by Anesthesia, TRIAGE NURSE in Right Forearm via Peripheral IV. Ordered by Mika Perea. Reason: As per physicians verbal order. HEPARIN 04/12/2017 8:48:07 AM 3000 units Anesthesia, TRIAGE NURSE As per physicians jagruti bal order 3000 units HEPARIN given in lab by Anesthesia, TRIAGE NURSE in Right Forearm via Peripheral IV. Ordered by Mika Booth. Reason: As per physicians verbal order. HEPARIN 04/12/2017 9:39:27 AM 2000 units Anesthesia, TRIAGE NURSE As per physicians jagruti bal order 2000 units HEPARIN given in lab by Anesthesia, TRIAGE NURSE in Right Forearm via Peripheral IV. Ordered by Mika Booth. Reason: As per physicians verbal order. PROTAMINE 04/12/2017 10:08:00 AM 40 mg Anesthesia, TRIAGE NURSE As per physicians verb al order 40 mg PROTAMINE given in lab by Anesthesia, TRIAGE NURSE in Right Forearm via Peripheral IV. Ordered by Mika Dumont. Reason: As per physicians verbal order. Medication (Drip) Medication Time Given Dosage/Unit Concentration/Unit Diluent (ml) Solution HEPARIN DRIP 04/12/2017 8:48:28 AM 1000 units/hr 30853 units 250 D5W 1000 units/hr HEPARIN DRIP given in lab by Anesthesia, TRIAGE NURSE in Right Forearm via Peripheral IV. Pump/ Drip Flow = 10 ml/hr [place] [address] units in 250 ml. Ordered by Mika Dumont. Reason: As per physicians verbal or addy. ISUPREL 04/12/2017 9:50:00 AM 20 mcg/min 1 mg 250 NaCl .9 20 mcg/min ISUPREL given in lab by Anesthesia, TRIAGE NURSE in Right Forearm via Peripheral IV. Pump/Drip Daquan w = 300 ml/hr using NaCl .9 with a concentration of 1 mg in 250 ml. Ordered by Mika Dumont. Reason: As per physicians verbal order. Initial Case Assessment Cardiovascular HR NIBP Chest Pain 91 130/96 0 Edema Present Skin color Skin None Normal Warm Dry Neurological State Oriented to time-place- Alert Moves all extremities person Respiration - General Respiration Rate SpO2 (%) (B/min) 20 100 Initial Case Assessment Cardiovascular HR Rhythm NIBP Chest Pain 93 af 138/95 0 Edema Present Skin color Skin None Normal Warm Dry Circulatory - Right Pulses Dorsalis Pedis 2 Scale (0,1,2,3,4,d) Circulatory - Left Pulses Dorsalis Pedis 2 Scale (0,1,2,3,4,d) Circulatory - Lower Extremities Color Lower Right Color Lower Left Normal Normal Neurological State Oriented to time-place- Alert Moves all extremities person Respiration - General Respiration Rate SpO2 (%) (B/min) 20 100 Final Case Assessment Cardiovascular HR NIBP 87 109/68 Edema Present Skin color Skin None Normal Warm Dry Respiration - General Respiration Rate SpO2 (%) (B/min) 20 100 Chronological Log Time Study Chronological Log 7:32:19 Patient arrived via Bed. 7:32:20 Patient Name, D.O.B, / Armband Verified By R.N. 7:32:32 Consent signed by the physician and the patient and verified by the [facility] staff. 7:32:33 Pre-op and post- op instructions given; patient acknowledges understanding of instructions. 7:32:34 Verbal Stimulation=2 Physical Stimulation=2 Airway=2 Respiration=2 TOTAL=8. (0=absent, 1=crowley ited, 2=present) 7:32:43 Anesthesia at bedside. Assumes care of patient. Jomar TRIAGE NURSE 7:32:46 Patient has been NPO for More than 6Hrs. 7:32:47 Skin Breakdown- none per pt 7:32:53 Patient Warmer Placed on the Table. 7:32:54 Disposable Defibrillator Pads Placed On Patient. 7:32:55 Feroz Prominences Protected 7:32:57 A # 22 IV was noted in the Hand (left). Grade = 0 0.9ns kvo 7:33:10 A # 22 IV was noted in the Forearm (right). Grade = 0 0.9ns kvo 7:33:26 History and physical on the chart. Assessment: Initial Case, HR=93 BPM, Rhythm=af, AZYO=042/95 mmhg, Chest Pain=0, Edema=None, [place] r=Normal, Skin = Warm, Dry Right Pulses: Mayur Ped=2 Left Pulses: Mayur Ped=2 7:40:32 Lower Right Extremities: Color=Normal Lower Left Extremities: Color=Normal Neurological: State=Alert, Ox3, [place] Respiration: Resp=20 B/min, PlF3=915 % Assessment: Initial Case, HR=91 BPM, SPFC=181/96 mmhg, Chest Pain=0, Edema=None, Color=Normal, S kin = Warm, Dry 7:56:57 Neurological: State=Alert, Ox3, [place] Respiration: Resp=20 B/min, GxA4=227 % 7:57:29 Table restraints applied according to hospital policy 7:57:35 Bilateral groins prepped with 2% chlorhexidine, and draped after a 3 minute waiting time. 8:00:51 Reference ECG taken 8:02:09 MD notified ready. 8:02:21 MD responded. 8:20:47 MD arrived. 8:21:57 Immediate Presedation assesment performed by physician. Time Out. Correct patient, procedure, procedure equipment, site and side verified with physician present. Time 8:22:45 concurred by MD, individual staff and TRIAGE NURSE. Time Out #2 - Consents verified, patient in correct position, all results are labled and display ed, safety precautions 8:22:52 taken, antibiotics administered. Time out concurred by MD, individual staff and TRIAGE NURSE in procedur e 8:22:55 Case Start 8:23:15 VANNESSA begun at bedside. 8:25:27 VANNESSA complete. 20 mL 1% XYLOCAINE given in lab by Mika Dumont in Left Groin via Subcutaneous. Ordered by Mika Finnegan. 8:25:52 Reason: As per physicians verbal order. 8:26:12 Vascular access was obtained in the Fem Vein (left). 8:26:17 Vascular access was obtained in the Fem Vein (left). 8:26:18 Vascular access was obtained in the Fem Vein (left). 8:26:24 Vascular access was obtained in the Fem Art (left). 8:26:37 A SHEATH, FR4.5 PRELUDE 11CM FR 4.5 was advanced into the Fem Art (left) using the Percutane ous technique. 8:26:51 A SHEATH, EPS, FR6 FAST CATH FR 6 was advanced into the Fem Vein (left) using the Percutaneo us technique. 8:27:02 A SHEATH, EPS, FR7 FAST CATH FR 7 was advanced into the Fem Vein (left) using the Percutaneo us technique. 8:27:11 A SHEATH, FR10 KRYSTAL 11CM FR 10 was advanced into the Fem Vein (left) using the Percutaneou s technique. 20 mL 1% XYLOCAINE given in lab by Mika Dumont in Right Groin via Subcutaneous. Ordered by Mika Booth. 8:27:28 Reason: As per physicians verbal order. 8:27:37 Vascular access was obtained in the Fem Vein (right). 8:27:45 A SHEATH, EPS, FR8 FAST CATH FR 8 was advanced into the Fem Vein (right) using the Percutane ous technique. 8:28:45 INR specimen collected and sent to lab stat. A CATHETER, JSN, QUAD FR 5 was advanced vis Fem Vein (left) and placed in the CS. Placement was visually 8:29:25 confirmed under fluoroscopy. A CATHETER, JSN, QUAD FR 5 was advanced vis Fem Vein (left) and placed in the HIS. Placement wa s visually 8:30:30 confirmed under fluoroscopy. 8:31:01 CATHETER, ACUNAV FR10 ICE (ROBERTO) FR 10 Was Postioned. A SHEATH, FR8.5 STEERABLE SM 71CM 71CM was exchanged in the Fem Vein (right). This was necessar y in order for 8:31:58 catheter support. 8:34:07 Wiseman needle inserted. 86926 units HEPARIN given in lab by Anesthesia, TRIAGE NURSE in Right Forearm via Peripheral IV. Ordere d by Mika Dumont. 8:35:45 Reason: As per physicians verbal order. 8:36:25 Transseptal. 8:36:33 Wiseman needle removed. 8:37:57 Mapping catheter inserted and placed in LA. 8:38:21 Mapping begun. 8:44:28 Activated Clotting Time Drawn 8:47:58 ACT (Normal Range 90-180) = 301 3000 units HEPARIN given in lab by Anesthesia, TRIAGE NURSE in Right Forearm via Peripheral IV. Ordered by Mika Dumont. 8:48:07 Reason: As per physicians verbal order. 1000 units/hr HEPARIN DRIP given in lab by Anesthesia, TRIAGE NURSE in Right Forearm via Peripheral IV. Pump/Drip Flow = 10 8:48:28 ml/hr [place] [address] units in 250 ml. Ordered by Mika Dumont. Justina son: As per physicians verbal order. Second Agiles sheath exchanged for first Agiles. 8:49:37 8:51:23 Mapping catheter removed. 8:51:36 Ablation catheter inserted LA. 8:51:51 RF Ablation of the LT. ATRIUM with a eps. carto 8:51:51 Ablation begun. 9:01:00 Activated Clotting Time Drawn 9:09:13 ACT (Normal Range 90-180) = 359 9:27:52 Activated Clotting Time Drawn 9:31:34 Ablation continues. 2000 units HEPARIN given in lab by Anesthesia, TRIAGE NURSE in Right Forearm via Peripheral IV. Ordered by Mika Dumont. 9:39:27 Reason: As per physicians verbal order. 9:45:57 ECG rhythm of AF noted. Patient cardioverted at 200 joules. Success synchronized 9:49:00 Ablation completed. 20 mcg/min ISUPREL given in lab by Anesthesia, TRIAGE NURSE in Right Forearm via Peripheral IV. Pump/Dr ip Flow = 300 ml/hr 9:50:00 using NaCl .9 with a concentration of 1 mg in 250 ml. Ordered by Mika Dumont. Reason: As p er physicians verbal order. 10:00:49 Isuprel gtt stopped. 10:02:21 Ablation procedure performed: AFIB. 10:02:32 EP Procedure was performed. Assessment: Final Case, HR=87 BPM, TTXR=544/68 mmhg, Edema=None, Color=Normal, Skin = Warm, Dry 10:04:41 Respiration: Resp=20 B/min, JjQ3=606 % 10:05:12 Catheter(s) removed without difficulty by . A SHEATH, FR9 KRYSTAL 11CM FR 9 was exchanged in the Fem Vein (right). This was necessary in or addy to achieve 10:05:34 vascular hemostasis. 10:06:03 No case complications noted. 10:06:06 Sheath(s) left in place, will be removed in Holding Area 10:06:11 Sterile dressing applied to site 10:06:16 Cine recording checked. 10:06:21 Holding Area notified of successful intervention. 10:06:26 Bedside Report will be given. 10:06:28 PACU called. Spoke to Madiha, 10:06:39 Defibrillator and ground pads removed. Skin intact. 40 mg PROTAMINE given in lab by Anesthesia, TRIAGE NURSE in Right Forearm via Peripheral IV. Ordered Mika Reyes. 10:08:00 Reason: As per physicians verbal order. 10:15:51 Activated Clotting Time Drawn 10:17:54 ACT (Normal Range 90-180) = 166 10:18:15 Case End 10:19:56 Patient moved to stretcher and transported to PACU in stable condition. End Study - Contrast Media Used In Study Contrast Total Opened (mL) Total Used (mL) Total Wasted (mL) Unspecified 0 0 0 End Study - Maximum Contrast Load Max Contrast Load (mL) 347.5 End Study - Radiation Exposure Fluoro Time (minutes) 2.9 End Study - Patient Disposition Complications Transferred To Interventional Outcome No Telemetry Bed successful
[2017-04-12] MEDS ORDERED: LORazepam 2 MG/ML VIAL IV PUSH PRN (10:45)
[2017-04-12] MEDS ORDERED: ATROPINE SULFATE 1 MG/ML VIAL IV PUSH PRN (10:45)
[2017-04-12] MEDS ORDERED: oxyCODONE/ACETAMINOPHEN 5 MG/325 MG TAB PO PRN ×2 (10:45)
[2017-04-12] MEDS ORDERED: ONDANSETRON HCL 4 MG/2 ML VIAL IV PUSH PRN (10:45)
[2017-04-12] MEDS ORDERED: SODIUM CHLOR 0.9% 250 ML INJ 250 ML IV PRN (10:45)
[2017-04-12] MEDS ORDERED: LIDOCAINE HCL 1% 50 ML VIAL INFIL PRN (10:45)
[2017-04-12] MEDS ORDERED: METOCLOPRAMIDE HCL 10 MG/2 ML VIAL IV PUSH PRN (10:45)
[2017-04-12] MEDS ORDERED: DO NOT ADM ANY ANTICOAGULANT DRUGS PRN (10:50)
--- NOTE | 2017-04-12 10:57 | PD.CARD ---
Atrial Fibrillation Ablation PROCEDURE DATE: Apr 12, 2017 PROCEDURES PERFORMED: 1. Electrophysiology study on Isuprel infusion 2. CS cannulation 3. 3-D mapping 4. Transseptal approach 5. Right and left heart catheterization 6. Intracardiac echo 7. Radiofrequency ablation of atrial fibrillation 8. Pulmonary vein isolation 9. Posterior wall ablation 10. Mitral valve isolation 11. Mitral line creation 12. Roof line creation 13. Floor line creation 14. Anterior and posterior ablation 15. Cardioversion INDICATIONS FOR THE PROCEDURE Mr. Bose is a 72-year-old male with atrial fibrillation, symptomatic despite medications, on anticoagulation, previous afib ablation, admits for electrophysiology study and ablation. The risks, the nature and the benefits of the procedure were clearly stated to him. The risks include pneumothorax, cardiac perforation, stroke, need for open heart surgery and even . The patient understood and agreed to proceed. DESCRIPTION OF THE PROCEDURE IN DETAIL As written informed consent was obtained prior to esophageal echocardiogram, the patient was kept on the table where he was prepped and draped in the usual sterile fashion. Conscious sedation was initiated and maintained throughout the procedure by the anesthesiologist. Once sedation was verified, the right and left inguinal areas were anesthetized with 2% Xylocaine. Using modified Seldinger technique, the left femoral vein was cannulated on three occasions, three guidewires were advanced. Over the wire a 6, 7 and a 10-Latvian Hemaquet were advanced. Then the left femoral artery was cannulated on one occasion, one guidewire was advanced. Over the wire a 4-Latvian Hemaquet was advanced. Then the right femoral vein was cannulated on one occasion, one guidewire was advanced. Over the wire a 8-Latvian Hemaquet was advanced. Then under fluoroscopic guidance through the 6 and 7-Latvian Hemaquet, two 5-Latvian Drake curved quadripolar electrophysiology catheters were advanced and placed around the His as well as coronary sinus. Basic interval was measured. The patient was in atrial fibrillation. Through the 10-Latvian Hemaquet, a CordRSB SPINEter AcuNav intracardiac echo catheter was advanced and placed at the right atrium. Multiple view was obtained. There is minimal pericardial effusion, pulmonary vein was seen, atrial septal was visualized. Then the 8- Latvian Hemaquet in the right femoral vein was exchanged for Agilis transseptal sheath that was placed all the way to the superior vena cava. Through the sheath a Kiki needle was advanced, then the sheath, the dilator and the needle were progressed until foci engaged. Once engaged, the needle was advanced. RF was delivered for 2 seconds. I was able to cross into the left atrium. Once the needle crossed, the dilator was advanced. Once the dilator crossed, the sheath was advanced. Once the sheath crossed, the dilator and the needle were removed. At this point I did flood the system and fluid movement was seen in the left atrium the indicates the sheath is in good position. The patient already received 10,000 units of heparin. The goal is to keep an ACT around 350 during ablation. Then through the sheath a St. Vern 20 pulse circumferential catheter was advanced. Using Samba Ads endocardial solution mapping system, a two-dimensional configuration of the left atrium was obtained. Points were taken at the left superior and inferior veins, right superior and inferior veins, mitral valve, and appendages. Then through the sheath a St. Vern TactiCath 65cm 3.5mm irrigated tipped mapping and radiofrequency ablation catheter was advanced. Esophageal probe was placed temperature monitoring during ablation. When it increased to 0.5 degrees Celsius above baseline, I moved to a different area of the atrium. First I did isolate the left superior and inferior vein. Posterior was ablated. Then a roof line was created, a floor line was created, a mitral line was isolated, then the mitral valve was isolated. I did create a line from the floor to the roof area, passing by the left atrial appendage. Then the right superior and inferior veins were isolated. I did remap the atrium. There is no significant signal in the atrium. At this point I decided to proceed with cardioversion. A 200 sync biphasic joule was delivered that converted the patient into sinus rhythm. At that point I did advance the circumferential catheter again into the vein. There was no signal into the vein, pacing from the vein showed no conduction to the atrium. Isuprel infusion was initiated at 20 mcg for over 10 minutes. No tachyarrhythmia was induced, post Isuprel no tachyarrhythmia was induced. At that point the procedure was complete. All catheters were removed, atrial septal sheath was exchanged for 9-Latvian Hemaquet, intracardiac echo showed no pericardial effusion. There is still good flow in the pulmonary vein. The patient is going to be transferred to the recovery room. No incident report. The patient tolerated the procedure. Blood loss was minimal. FINDINGS 1. Electrocardiogram: At baseline the patient was in atrial fibrillation, post procedure the patient was in sinus rhythm. 2. Basic interval: Base cycle length was around 640. Post ablation she was around 980 milliseconds. AH at 70 and HV at 52 milliseconds. 3. Tachyarrhythmia: Atrial fibrillation was mapped and ablated. The ablation was successful. CONCLUSION Successful electrophysiology study, mapping, radiofrequency ablation of atrial fibrillation, pulmonary vein isolation, posterior ablation, mitral valve isolation, mitral line creation, roof line creation, floor line creation, left atrial tachycardia, and cardioversion. COMMENTS AND RECOMMENDATIONS The patient is going to be transferred to the telemetry unit. Will be observed and when stable can be discharged home. Mika Dumont MD Apr 12, 2017 10:57
[2017-04-12] MEDS ORDERED: BACITRACIN OINT 0.9 GM PKT TOP ONE (11:45)
--- NOTE | 2017-04-12 16:17 | EKG ---
Date Performed: 04/12/2017 Time Performed: 07:00:48 PTAGE: 72 years EKG: Atrial fibrillation with a controlled ventricular response. Poor R wave progression - proba ble normal variant Low QRS voltages in limb leads When compared to previous tracing, the atrial fibri llation is new. The early R wave transition has resolved. Abnormal ECG PREVIOUS TRACING : 02/16/2017 05.33 DOCTOR: Sandra Oakley Interpretating Date/Time 04/12/2017 16:16:49
[2017-04-12] MEDS: APIXABAN 5 MG TABLET PO SCH (20:00)
[2017-04-12] MEDS: FLECAINIDE ACETATE 100 MG TAB PO SCH (20:00)
[2017-04-12] MEDS ORDERED: ATORVASTATIN 40 MG TAB PO SCH (21:00)
--- NOTE | 2017-04-12 22:10 | EKG ---
Date Performed: 04/12/2017 Time Performed: 11:25:30 PTAGE: 72 years EKG: Sinus rhythm WITH FIRST DEGREE AV BLOCK LOW QRS VOLTAGE IN EXTREMITY LEADS PREVIOUS TRACING : 04/12/2017 07.00 Compared to the previous tracing a fib no longer pres ent DOCTOR: Zandra Marshall Interpretating Date/Time 04/12/2017 22:09:48
[2017-04-13] VITALS (9 sets, daily range): BP systolic 118–133; BP diastolic 82–97; PULSE 67–76; RESP 16; TEMP 98.3–98.6; O2SAT 96–97
[2017-04-13 05:26] LABS: APTT (PATIENT) 23.6 SEC (24.3-30.1); INTERNATIONAL NORMALIZED RATIO 1.1 RATIO; PROTHROMBIN TIME - PATIENT 10.9 SEC (9.8-11.6)
[2017-04-13] MEDS: APIXABAN 5 MG TABLET PO SCH (08:57)
[2017-04-13] MEDS: FLECAINIDE ACETATE 100 MG TAB PO SCH (08:58)
[2017-04-13] MEDS ORDERED: CHLORTHALIDONE 50 MG TAB PO SCH (09:00)
[2017-04-13] MEDS ORDERED: LISINOPRIL 20 MG TAB PO SCH (09:00)
[2017-04-13] MEDS ORDERED: METOPROLOL TARTRATE 50 MG TAB PO SCH (09:00)
[2017-04-13] MEDS ORDERED: MULTIVITAMIN TAB PO SCH (09:00)
--- NOTE | 2017-04-13 09:41 | PD.CARD.PN ---
Subjective Subjective Remarks Feels okay. Objective Medications Current Medications Medications (Trade) Dose Ordered Sig/Alem Route Start Time Stop Time Status Last Admin (Percocet 5-325 Mg) 1 tab Q4H PRN PO 04/12/17 10:45 (Percocet 5-325 Mg) 2 tab Q4H PRN PO 04/12/17 10:45 (Ativan Inj) 0.5 mg UNSCH PRN IV PUSH 04/12/17 10:45 04/13/17 10:44 (Atropine Inj) 0.5 mg UNSCH PRN IV PUSH 04/12/17 10:45 Sodium Chloride 250 ml @ 500 mls/hr ONCE PRN IV 04/12/17 10:45 04/13/17 10:44 (Reglan Inj) 10 mg Q4H PRN IV PUSH 04/12/17 10:45 (Zofran Inj) 4 mg Q4H PRN IV PUSH 04/12/17 10:45 (Xylocaine 1% Inj (50 ml)) 10 ml UNSCH PRN INFIL 04/12/17 10:45 04/13/17 10:44 (Eliquis) 5 mg BID PO 04/12/17 21:00 04/13/17 08:57 (Lipitor) 40 mg HS PO 04/12/17 21:00 04/12/17 20:00 (Tambocor) 100 mg BID PO 04/12/17 21:00 04/13/17 08:58 (Lopressor) 50 mg DAILY PO 04/13/17 09:00 04/13/17 08:57 (Hygroton) 25 mg DAILY PO 04/13/17 09:00 04/13/17 08:56 (Prinivil) 40 mg DAILY PO 04/13/17 09:00 04/13/17 08:57 (Theragran) 1 tab DAILY PO 04/13/17 09:00 04/13/17 08:57 Miscellaneous Information ALL NURSING DEPARTME... UNSCH PRN .XX 04/12/17 10:50 04/13/17 10:49 Vital Signs / I&O Vital Signs Date Time Temp Pulse Resp B/P (MAP) Pulse Ox O2 Delivery O2 Flow Rate FiO2 04/13/17 09:00 76 04/13/17 08:00 74 04/13/17 07:00 68 04/13/17 07:00 98.3 67 16 133/91 (105) 96 04/13/17 05:00 70 04/13/17 04:00 98.3 70 16 130/97 (108) 97 04/13/17 04:00 70 04/13/17 03:00 69 04/13/17 02:00 72 04/13/17 01:00 76 04/13/17 00:00 98.6 72 16 118/82 (94) 97 04/13/17 00:00 76 04/12/17 23:00 78 04/12/17 22:00 78 04/12/17 21:00 100 04/12/17 20:00 84 04/12/17 19:15 98.5 84 16 100/76 (84) 97 04/12/17 19:00 88 04/12/17 16:29 98.3 74 16 109/57 (74) 96 04/12/17 16:00 97.8 70 16 120/70 (87) 97 Room Air 04/12/17 15:00 71 16 116/72 (87) 96 Room Air 04/12/17 14:00 73 16 110/71 (84) 96 Room Air 04/12/17 13:00 72 16 112/68 (83) 95 Room Air 04/12/17 12:00 97.6 70 16 115/66 (82) 99 Nasal Cannula 2 04/12/17 11:45 72 16 108/78 (88) 98 Nasal Cannula 2 04/12/17 11:30 73 16 109/74 (86) 97 Nasal Cannula 2 04/12/17 11:15 72 15 110/73 (85) 95 Nasal Cannula 2 04/12/17 11:00 74 15 112/77 (89) 100 Nasal Cannula 3 04/12/17 10:50 97.6 72 14 130/70 (90) 99 Nasal Cannula 3 I/O 04/12/17 04/12/17 04/12/17 04/13/17 04/13/17 04/13/17 07:00 15:00 23:00 07:00 15:00 23:00 Intake Total 490 ml 240 ml Output Total 150 ml Balance 340 ml 240 ml Intake Oral 490 ml 240 ml Output Urine Total 150 ml # Voids 2 3 Physical Exam GENERAL: Well-nourished, well-developed patient. SKIN: Warm and dry. Groin site soft with no bruising or bleeding. HEAD: Normocephalic. EYES: No scleral icterus. No injection or drainage. NECK: Supple, trachea midline. No JVD or lymphadenopathy. CARDIOVASCULAR: Regular rate and rhythm without murmurs, gallops, or rubs. RESPIRATORY: Breath sounds equal bilaterally. No accessory muscle use. GASTROINTESTINAL: Abdomen soft, non-tender, nondistended. EXTREMITIES: No cyanosis, or edema. NEUROLOGICAL: Awake, alert, and oriented x 3. Non-focal. Laboratory Laboratory Tests Test 04/13/17 05:00 Prothrombin Time 10.9 SEC Prothromb Time International Ratio 1.1 RATIO Activated Partial Thromboplast Time 23.6 SEC Assessment and Plan Problem List: (1) Atrial fibrillation ICD Codes: I48.91 - Unspecified atrial fibrillation Plan: Normal sinus rhythm on telemetry. Resume home meds. (2) S/P ablation of atrial fibrillation ICD Codes: Z98.890 - Other specified postprocedural states; Z86.79 - Personal history of other diseases of the circulatory system Plan: Stable for discharge home. Follow-up with Dr. millan in 3 weeks per my discussion with him. Problem Qualifiers (1) Atrial fibrillation: Qualified Codes: I48.0 - Paroxysmal atrial fibrillation Deepthi Cao Apr 13, 2017 09:41
--- NOTE | 2017-04-13 10:12 | EKG ---
Date Performed: 04/13/2017 Time Performed: 04:17:58 PTAGE: 72 years EKG: Sinus rhythm with 1st degree A-V block Possible septal infarct - age undetermined Low QRS voltages in limb leads Abnormal ECG PREVIOUS TRACING : 04/12/2017 11.25 Compared to prior tracing no significant change DOCTOR: Zandra Marshall Interpretating Date/Time 04/13/2017 10:12:23
== END 2017-04-13 10:08 | disposition home or self-care (01) ==
LOC: HDOC 05:58 → HDIC 05:58 → HCIS 16:20 → HDOC 04-13 10:08
PROVIDERS: ATTEND Internal Medicine Interventional Cardiology
DX: I11.9 Hypertensive heart disease without heart failure (principal); I48.0 Paroxysmal atrial fibrillation; I44.0 Atrioventricular block, first degree; I25.10 Atherosclerotic heart disease of native coronary artery without angina pectoris
CPT/HCPCS: 80048; 85002; 85025; 85610; 85730; 86850; 86900; 86901; 92960; 93005; 93312; 93320; 93325; 93613; 93623; 93656; 93662; C1730; C1731; C1732; C1759; C1766; C2630; J1644; J2720

== ENCOUNTER 2017-04-15 14:52 | Emergency (ER) | payer OTHER ==
[~2017-04-15] VITALS: Ht 172.7 cm; Wt 70.0 kg
[~2017-04-15 14:52] MED LIST changes: +FLEC100T PO; +MULT-65 PO
[2017-04-15 14:53] VITALS: BP 115/81; PULSE 77; RESP 19; TEMP 97.3; O2SAT 97
[2017-04-15 15:51] VITALS: BP 115/78; PULSE 84; RESP 18; O2SAT 95
[2017-04-15 16:06] LABS: AUTOMATED NEUTROPHIL # 5.3 TH/MM3 (1.8-7.7); BASOPHIL # 0.1 TH/MM3 (0-0.2); BASOPHIL % 0.8 % (0.0-2.0); EOSINOPHIL # 0.1 TH/MM3 (0-0.4); EOSINOPHIL % 0.8 % (0.0-4.0); HEMATOCRIT 44.9 % (39.0-51.0); HEMO FLAGS DIFF FINAL; LYMPH % 15.9 % (9.0-44.0); LYMPHOCYTE # 1.2 TH/MM3 (1.0-4.8); MEAN CORPUSCULAR HEMOGLOBIN 30.7 PG (27.0-34.0); MEAN CORPUSCULAR HGB CONC 34.1 % (32.0-36.0); MONO % 13.1 % (0.0-8.0); NEUT % 69.4 % (16.0-70.0); PLATELET COUNT 161 TH/MM3 (150-450); RED CELL DISTRIBUTION WIDTH 15.6 % (11.6-17.2); WHITE BLOOD COUNT 7.7 TH/MM3 (4.0-11.0)
[2017-04-15 16:17] LABS: APTT (PATIENT) 24.8 SEC (24.3-30.1); INTERNATIONAL NORMALIZED RATIO 1.1 RATIO; PROTHROMBIN TIME - PATIENT 10.7 SEC (9.8-11.6)
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
== END 2017-04-15 17:11 | disposition home or self-care (01) ==
LOC: NEPD 14:52
DX: R04.0 Epistaxis (principal); I48.91 Unspecified atrial fibrillation; I10 Essential (primary) hypertension; E78.00 Pure hypercholesterolemia, unspecified; I25.10 Atherosclerotic heart disease of native coronary artery without angina pectoris; E78.5 Hyperlipidemia, unspecified; I44.0 Atrioventricular block, first degree; Z79.899 Other long term (current) drug therapy; Z88.8 Allergy status to other drugs, medicaments and biological substances
CPT/HCPCS: 85025; 85610; 85730; 99282

== ENCOUNTER 2017-06-28 10:02 | Day surgery (SDC) | payer OTHER ==
[~2017-06-28] VITALS: Ht 172.7 cm; Wt 69.9 kg
[2017-06-28] VITALS (7 sets, daily range): BP systolic 98–112; BP diastolic 70–85; PULSE 70–87; RESP 18–20; TEMP 97.8–98; O2SAT 96–97
[2017-06-28] MEDS ORDERED: SODIUM CHLORID 0.9% 500 ML INJ 500 ML IV SCH (11:00)
[2017-06-28] MEDS ORDERED: HEPARIN-NS/PF FLUSH BAG 3,000 ML IV FLUSH ONE (11:04)
[2017-06-28 11:14] LABS: AUTOMATED NEUTROPHIL # 3.3 TH/MM3 (1.8-7.7); BASOPHIL # 0.1 TH/MM3 (0-0.2); BASOPHIL % 1.5 % (0.0-2.0); EOSINOPHIL # 0.1 TH/MM3 (0-0.4); EOSINOPHIL % 1.1 % (0.0-4.0); HEMATOCRIT 51.1 % (39.0-51.0); LYMPH % 25.9 % (9.0-44.0); LYMPHOCYTE # 1.5 TH/MM3 (1.0-4.8); MEAN CELL VOLUME 87.9 FL (80.0-100.0); MEAN CORPUSCULAR HEMOGLOBIN 30.9 PG (27.0-34.0); MEAN CORPUSCULAR HGB CONC 35.1 % (32.0-36.0); MEAN PLATELET VOLUME 8.9 FL (7.0-11.0); MONO % 14.5 % (0.0-8.0); MONOCYTE # 0.8 TH/MM3 (0-0.9); PLATELET COUNT 188 TH/MM3 (150-450); RED BLOOD COUNT 5.82 MIL/MM3 (4.50-5.90); RED CELL DISTRIBUTION WIDTH 15.2 % (11.6-17.2); WHITE BLOOD COUNT 5.8 TH/MM3 (4.0-11.0)
[2017-06-28] MEDS ORDERED: SODIUM CHLORID 0.9% 500 ML IV PRN (11:15)
[2017-06-28] MEDS ORDERED: LORazepam 1 MG TAB SL SCH (11:15)
[2017-06-28] MEDS ORDERED: METOPROLOL TARTRATE 25 MG TAB PO PRN (11:15)
[2017-06-28] MEDS ORDERED: CHLORHEXIDINE GLUCONATE 2 % 1 PACK (2 CLOTHS) TOPICAL PRN (11:15)
[2017-06-28] MEDS ORDERED: LACTATED RINGER'S 1000 ML IV PRN (11:15)
[2017-06-28] MEDS ORDERED: POVIDONE IODINE 5% (ANTISEPSIS KIT) 4 APPLICATIONS EACH NARE PRN (11:15)
[2017-06-28 11:22] LABS: INTERNATIONAL NORMALIZED RATIO 1.1 RATIO; PROTHROMBIN TIME - PATIENT 10.7 SEC (9.8-11.6)
[2017-06-28 11:34] LABS: BICARBONATE 27.9 MEQ/L (21.0-32.0); CALCIUM 9.1 MG/DL (8.5-10.1); CREATININE 1.06 MG/DL (0.60-1.30)
[2017-06-28] MEDS ORDERED: HEPARIN-D5W 25,000 U/250 ML 250 ML ONE (11:53)
[2017-06-28] MEDS ORDERED: PROTAMINE SULFATE 50 MG/5 ML VIAL ONE (11:53)
[2017-06-28] MEDS ORDERED: HEPARIN SODIUM - IV 10,000 UNITS/10 ML VIAL ONE ×2 (11:54→12:14)
[2017-06-28] MEDS ORDERED: ONDANSETRON HCL 4 MG/2 ML VIAL IV ONE (12:00)
[2017-06-28] MEDS ORDERED: ROCURONIUM INJ 50 MG/5 ML SYRINGE IV PUSH ONE (12:00)
[2017-06-28] MEDS ORDERED: LIDOCAINE HCL 1% PF 5 ML SYRINGE OTHER ONE (12:00)
[2017-06-28] MEDS ORDERED: PROPOFOL 200 MG/20 ML AMP IV ONE (12:00)
[2017-06-28] MEDS ORDERED: PHENYLEPH/NS 1000 MCG/10 ML SYR IV ONE (12:00)
[2017-06-28] MEDS ORDERED: ePHEDrine/NS 25 MG/5 ML SYRINGE IV ONE (12:00)
[2017-06-28] MEDS ORDERED: DEXAMETHASONE SOD PHOS 4 MG/ML VIAL IV ONE (12:00)
--- NOTE | 2017-06-28 14:22 | CATHPROC ---
Patient Name: RD BORRERO Study #: [id number] Initial MD: Mika Dumont Date of : 1945 Study Date: 06/28/2017 Cardiac Catheterization Report 06/28/2017 2:21:57 PM Financial #: [id number] 1 of 10 Patient Name: RD BORRERO Study #: [id number] Initial MD: Mika Dumont Date of : 1945 Study Date: 06/28/2017 Entire Case Report Patient Information Patient Name RD BORRERO Date of 1945 Age 72 years Financial # [id number] Gender M AlternateID Lab Number 2 Room Number DC09 Height (in) 68.0 Height (cm) 172.7 BSA 1.82 Weight (lbs) 152.2 Weight (kg) 69.2 Patient Address/Phone Number Home Address [facility] Home Phone Number [address] [facility] [id number] Study Information Study Number Admission Scheduled Start Study Start [id number] Jun 28 2017 10:02AM 06/28/2017 Jun 28 2017 11:34AM [facility] [facility] Electrophysiology Study Admit Source Facility Department Other [facility] Physician and Clinical Staff Initial Mika Abdi [employer] Receptionist Madiha Torres,RT(R) TECH2 Law Firm Receptionist Yaima Coburn RCIS Other Anesthesia, ASSISTED SALES REPRESENTATIVE Recorder Jessica Wood RN Recorder Daniel Locke,ROSAMARIA Scrub Jay Harding,RT(R) Procedures Performed Procedure Location (Site) Vessel Name Ablation Procedure Cardioversion ICE CATHETER INSERT RA Atruim RF Ablation LT. ATRIUM LT. 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 Used 65 BUNDLE *[id number]- BUNDLE [id number] CATHETER, FR7 OPTIMA SPIRAL 11:38 [facility] FR7 *[id number]- Used BUNDLE BUNDLE [id number] 11:38 [facility]UN[facility] CATHETER, JSN, QUAD BUNDLE FR 5 *[id number]- Used BUNDLE [id number] 11:38 BUND[facility]-[employer] [employer] CATHETER, JSN, QUAD BUNDLE FR 5 *9375815- Used BUNDLE [id number] SET, COOL POINT TUBING 11:38 BUND[facility] *[id number]- Used BUNDLE BUNDLE SHEATH, FR8.5 STEERABLE SM 11:38 BUND[facility] 71CM [id number] Used 71CM BUNDLE COVER, TRANSDUCER CABLE 612-113 11:38 [employer] Used ACUNAV *[id number] 11:38 CORDIS/PACER SHEATH, FR10 KRYSTAL 11CM FR 10 Used *[id number] 11:38 CORDIS/PACER SHEATH, FR9 KRYSTAL 11CM FR 9 [id number] Used [id number] 11:38 [employer] PACK, CCL CUSTOM * Used *[id number] 11:38 Back[employer] I/O PACER ZAFAR, LIMB * 2530 *[id number] Used [id number] 11:38 [employer] MEDICAL SHEATH, FR4.5 PRELUDE 11CM FR 4.5 Used [id number] 11:38 NAMIC TUBING, HIGH PRESSURE 48" 48" Used *[id number] 11:38 NAMIC TUBING, HIGH PRESSURE 48" 48" Used *[id number] [id number] 12:46 NAMIC TUBING, HIGH PRESSURE 48" 48" Used *[id number] [id number] 11:38 [employer] MEDICAL BLANKET,WARM AIR CCL * Used *[id number] [id number] 11:38 [facility] MEDICAL ELECTRODE KIT, SETH X SURFACE * Used *[id number] 811108 11:38 [facility] MEDICAL SHEATH, EPS, FR6 FAST CATH FR 6 Used *[id number] 11:38 [facility] MEDICAL SHEATH, EPS, FR7 FAST CATH FR 7 [id number] Used 087295 11:38 [facility] MEDICAL SHEATH, EPS, FR8 FAST CATH FR 8 Used *[id number] CATHETER, ACUNAV FR10 ICE [id number] 12:47 ROBERTO FR 10 Used (ROBERTO) *[id number] TERUMO MEDICAL 12:46 SHEATH, FR10 TURUMO FR 10 [id number] Used COMPANY [facility] PAD, ELECTROSURGICAL 11:38 * [id number] *[id number] Used SURGICAL GROUNDING (BLUE) 06/28/2017 2:21:57 PM Financial #: [id number] Patient Name: RD BORRERO Study #: [id number] Initial MD: Mika Dumont Date of : 1945 Study Date: 06/28/2017 Insurance Information Insurance Payor Private Health Insurance Third Republican Third Republican Number [facility] [facility] [facility] History: Allergies Allergy Reaction diltiazem History: Risk Factors Hypertension Dyslipidemia Yes Yes Labs Hgb (g/dl) Hct (%) RBC (MIL/MM3) WBC (l/cumm) Platelets (thousands) 11.60-17.00 35.00-51.00 4.00-5.90 4.00-11.00 150.00-450.00 18.0 51 5.8 5.8 188 Glucose (mg/dl) BUN (mg/dl) Creatinine (mg/dl) BUN:Creatinine (1:x) 74.00-106.00 7.00-18.00 0.50-1.30 10.00-20.00 91 21 1.0 21 Na (meq/l) K (meq/l) 136.00-145.00 3.50-5.10 134 3.8 INR (PTT:PT) 0.90-1.10 1.1 Medication Medication Total Dose (Bolus/Oral) Medication Total Dosage/Unit 1% XYLOCAINE 40 mL HEPARIN 78518 units PROTAMINE 40 mg 06/28/2017 2:21:57 PM Financial #: [id number] Patient Name: RD BORRERO Study #: [id number] Initial MD: Mika Dumont Date of : 1945 Study Date: 06/28/2017 Medications (Bolus/Oral) Medication Time Given Dosage/Unit Administered By Reason 1% XYLOCAINE 06/28/2017 12:40:57 PM 20 mL Mika Dumont 20 mL 1% XYLOCAINE given in lab by Mika Dumont in Left Groin via Subcutaneous. 1% XYLOCAINE 06/28/2017 12:44:08 PM 20 mL Mika Dumont 20 mL 1% XYLOCAINE given in lab by Mika Dumont in Right Groin via Subcutaneous. HEPARIN 06/28/2017 12:53:04 PM 40752 units Anesthesia, ASSISTED SALES REPRESENTATIVE As per physicians v erbal order 18919 units HEPARIN given in lab by Anesthesia, ASSISTED SALES REPRESENTATIVE via Peripheral IV. Ordered by Mika Dumont. Justina son: As per physicians verbal order. HEPARIN 06/28/2017 1:04:50 PM 4000 units Anesthesia, ASSISTED SALES REPRESENTATIVE As per physicians ve rbal order 4000 units HEPARIN given in lab by Anesthesia, ASSISTED SALES REPRESENTATIVE via Peripheral IV. Ordered by Mika Dumont. Reas on: As per physicians verbal order. PROTAMINE 06/28/2017 2:04:09 PM 40 mg Anesthesia, ASSISTED SALES REPRESENTATIVE As per physicians jagruti bal order 40 mg PROTAMINE given in lab by Anesthesia, ASSISTED SALES REPRESENTATIVE via Peripheral IV. Ordered by Mika Dumont. Reason: As per physicians verbal order. Medication (Drip) Medication Time Given Dosage/Unit Concentration/Unit Diluent (ml) Solution HEPARIN DRIP 06/28/2017 1:05:42 PM 1000 units/hr 42741 units 250 D5W 1000 units/hr HEPARIN DRIP given in lab by Anesthesia, ASSISTED SALES REPRESENTATIVE via Peripheral IV. Pump/Drip Flow = 10 ml /hr [place] [address] units in 250 ml. Ordered by Mika Dumont. Reason: As per physicians verbal order. ISUPREL 06/28/2017 1:46:00 PM 10 mcg/min 1 mg 250 NaCl .9 10 mcg/min ISUPREL given in lab by Anesthesia, ASSISTED SALES REPRESENTATIVE via Peripheral IV. Pump/Drip Flow = 150 ml/hr usi ng NaCl .9 with a concentration of 1 mg in 250 ml. Ordered by Mika Dumont. Reason: As per physicians verbal order. Initial Case Assessment Cardiovascular Edema Present Skin color Skin None Normal Warm Dry Circulatory - Right Pulses Dorsalis Pedis Femoral 2 2 Scale (0,1,2,3,4,d) Circulatory - Left Pulses Dorsalis Pedis Femoral 2 2 Scale (0,1,2,3,4,d) Neurological State Oriented to time-place- Alert Moves all extremities person 06/28/2017 2:21:57 PM Financial #: [id number] 5 of 10 Patient Name: RD BORRERO Study #: [id number] Initial MD: Mika Dumont Date of : 1945 Study Date: 06/28/2017 Initial Case Assessment Cardiovascular HR Rhythm NIBP Chest Pain 99 af 118/92 0 Edema Present Skin color Skin None Normal Warm Dry Circulatory - Right Pulses Dorsalis Pedis 2 Scale (0,1,2,3,4,d) Circulatory - Left Pulses Dorsalis Pedis 2 Scale (0,1,2,3,4,d) Circulatory - Lower Extremities Color Lower Right Color Lower Left Normal Normal Neurological State Oriented to time-place- Alert Moves all extremities person Respiration - General Respiration Rate SpO2 (%) (B/min) 18 96 06/28/2017 2:21:57 PM Financial #: [id number] 6 of 10 Patient Name: RD BORRERO Study #: [id number] Initial MD: Mika Dumont Date of : 1945 Study Date: 06/28/2017 Final Case Assessment Cardiovascular HR Rhythm NIBP Chest Pain 75 sr 114/80 0 Edema Present Skin color Skin None Normal Warm Dry Circulatory - Right Pulses Dorsalis Pedis 2 Scale (0,1,2,3,4,d) Circulatory - Left Pulses Dorsalis Pedis 2 Scale (0,1,2,3,4,d) Circulatory - Lower Extremities Color Lower Right Color Lower Left Normal Normal Neurological State Lethargic Moves all extremities Respiration - General Respiration Rate SpO2 (%) O2 (lpm) (B/min) 16 96 4 Chronological Log Time Study Chronological Log 11:49:00 Patient Name, D.O.B, / Armband Verified By R.N. 11:50:00 Patient arrived via Bed. 11:51:26 History and physical on the chart. 11:51:26 Consent signed by the physician and the patient and verified by the [facility] staff. 11:51:40 Pre-op and post- op instructions given; patient acknowledges understanding of instructions. 11:51:46 Verbal Stimulation=2 Physical Stimulation=2 Airway=2 Respiration=2 TOTAL=8. (0=absent, 1=li mited, 2=present) 11:55:00 Anesthesia at bedside. Assumes care of patient. see anesthesia flow sheet for all medicatio ns and VS. Jomar 06/28/2017 2:21:57 PM Financial #: [id number] Patient Name: RD BORRERO Study #: [id number] Initial MD: Mika Dumont Date of : 1945 Study Date: 06/28/2017 Assessment: Initial Case, HR=99 BPM, Rhythm=af, ZFPT=955/92 mmhg, Chest Pain=0, Edema=None, Col or=Normal, Skin = Warm, Dry Right Pulses: Mayur Ped=2 Left Pulses: Mayur Ped=2 11:59:20 Lower Right Extremities: Color=Normal Lower Left Extremities: Color=Normal Neurological: State=Alert, Ox3, [place]OR[place] Respiration: Resp=18 B/min, SpO2=96 % 12:10:32 Patient has been NPO for More than 6Hrs. 12:10:35 Skin Breakdown-none per pt 12:10:49 Patient Warmer Placed on the Table. 12:10:51 Disposable Defibrillator Pads Placed On Patient. 12:10:53 Feroz Prominences Protected Assessment: Initial Case, Edema=None, Color=Normal, Skin = Warm, Dry Right Pulses: Mayur Ped=2, Femoral=2 12:11:02 Left Pulses: Mayur Ped=2, Femoral=2 Neurological: State=Alert, Ox3, [place]ORGA 12:11:18 Table restraints applied according to hospital policy 12:15:00 Approx: Anesthesia intubated PT w Dr Chavez present 12:23:30 PIV L and R AC #20 w NS at KVO sites WNL. 12:23:46 Condom cath placed 12:24:00 Bilateral groins prepped with 2% chlorhexidine, and draped after a 3 minute waiting time. 12:35:00 MD arrived. 12:36:11 JF out. MM in. 12:37:30 Reference ECG taken Time Out. Correct patient, procedure, procedure equipment, site and side verified with physicia n present. Time 12:38:00 concurred by MD, individual staff and ASSISTED SALES REPRESENTATIVE. Time Out #2 - Consents verified, patient in correct position, all results are labled and displa yed, safety precautions 12:38:21 taken, antibiotics administered. Time out concurred by MD, individual staff and ASSISTED SALES REPRESENTATIVE in procedu re 12:38:43 Case Start 12:38:46 Moises in progress. 12:40:00 Moises complete. 12:40:57 20 mL 1% XYLOCAINE given in lab by Mika Dumont in Left Groin via Subcutaneous. 12:41:17 Vascular access was obtained in the Fem Vein (left). 12:41:21 Vascular access was obtained in the Fem Vein (left). 12:41:30 Vascular access was obtained in the Fem Vein (left). 12:41:35 Vascular access was obtained in the Fem Art (left). A SHEATH, FR4.5 PRELUDE 11CM FR 4.5 was advanced into the Fem Art (left) using the Modified Louise ilana technique. 12:41:47 0.9ns pressure bag connected. 12:41:56 A SHEATH, EPS, FR6 FAST CATH FR 6 was advanced into the Fem Vein (left) using the Modified Seldinger technique. 12:42:05 A SHEATH, EPS, FR7 FAST CATH FR 7 was advanced into the Fem Vein (left) using the Modified Seldinger technique. 12:42:09 A SHEATH, FR10 KRYSTAL 11CM FR 10 was advanced into the Fem Vein (left) using the Modified S eldinger technique. 12:44:08 20 mL 1% XYLOCAINE given in lab by Mika Dumont in Right Groin via Subcutaneous. 12:44:21 Vascular access was obtained in the Fem Vein (right). 06/28/2017 2:21:57 PM Financial #: [id number] Patient Name: RD BORRERO Study #: [id number] Initial MD: Mika Dumont Date of : 1945 Study Date: 06/28/2017 12:44:24 A SHEATH, EPS, FR8 FAST CATH FR 8 was advanced into the Fem Vein (right) using the Modified Seldinger technique. A CATHETER, JSN, QUAD BUNDLE FR 5 was advanced vis Fem Vein (left) and placed in the CS. Placem ent was visually 12:46:29 confirmed under fluoroscopy. A CATHETER, JSN, QUAD BUNDLE FR 5 was advanced vis Fem Vein (left) and placed in the HIS. Place ment was 12:46:37 visually confirmed under fluoroscopy. 12:48:46 CATHETER, ACUNAV FR10 ICE (ROBERTO) FR 10 Was Postioned. A SHEATH, FR8.5 STEERABLE SM 71CM BUNDLE 71CM was exchanged in the Fem Vein (right). This was n ecessary in 12:49:00 order for catheter support. 12:52:01 [place]. [address] units HEPARIN given in lab by Anesthesia, ASSISTED SALES REPRESENTATIVE via Peripheral IV. Ordered by Roberth Dumont Reason: As per 12:53:04 physicians verbal order. 12:53:23 A eps was advanced to the right atrium and passed through the septal wall to the left atriu m. 12:53:35 [place] out A CATHETER, FR7 OPTIMA SPIRAL BUNDLE FR7 was advanced vis Fem Vein (right) and placed in the LA . Placement 12:53:46 was visually confirmed under fluoroscopy. Mapping in progress. 12:58:18 Activated Clotting Time Drawn 13:00:00 Mapping complete. Catheter was removed A CATHETER, TACTICATH ABLAT 65 BUNDLE was advanced vis Fem Vein (right) and placed in the LA. P lacement was 13:00:47 visually confirmed under fluoroscopy. 13:04:38 ACT (Normal Range 90-180) = 281 4000 units HEPARIN given in lab by Anesthesia, ASSISTED SALES REPRESENTATIVE via Peripheral IV. Ordered by Mika Dumont . Reason: As per 13:04:50 physicians verbal order. 1000 units/hr HEPARIN DRIP given in lab by Anesthesia, ASSISTED SALES REPRESENTATIVE via Peripheral IV. Pump/Drip Flow = 10 ml/hr using 13:05:42 [place] [address] units in 250 ml. Ordered by Mika Dumont. Reason: As per mesha canales verbal order. 13:12:48 RF Ablation of the LT. ATRIUM with a CATHETER, TACTICATH ABLAT 65 BUNDLE. 13:15:48 Activated Clotting Time Drawn 13:24:54 ACT (Normal Range 90-180) = 351 13:40:50 ECG rhythm of AF noted. Patient cardioverted at 200 joules. Success synch 13:41:19 Monitor sr. 10 mcg/min ISUPREL given in lab by Anesthesia, ASSISTED SALES REPRESENTATIVE via Peripheral IV. Pump/Drip Flow = 150 ml/ hr using NaCl .9 13:46:00 with a concentration of 1 mg in 250 ml. Ordered by Mika Dumont. Reason: As per physicians jagruti bal order. 13:57:29 Isuprel off. 13:58:16 All catheter(s) removed without difficulty 13:58:32 Heparin off 13:59:37 Ablation procedure performed: VT. A SHEATH, FR10 TURUMO FR 10 was exchanged in the Fem Vein (right). This was necessary in order to minimize site 13:59:40 leakage. 13:59:42 EP Procedure was performed. 14:00:12 PACU called. Spoke to Madiha 14:01:41 Bedside Report will be given. 14:01:45 Sheath(s) left in place, 0.9ns kvo connected, secured and will be removed in Holding Area 14:02:05 Sterile dressing applied to sites 40 mg PROTAMINE given in lab by Anesthesia, ASSISTED SALES REPRESENTATIVE via Peripheral IV. Ordered by Mika Dumont. R melissa: As per 14:04:09 physicians verbal order. 14:15:00 Activated Clotting Time Drawn 06/28/2017 2:21:57 PM Financial #: [id number] Patient Name: DR BORRERO Study #: [id number] Initial MD: Mika Dumont Date of : 1945 Study Date: 06/28/2017 14:19:34 ACT (Normal Range 90-180) = 158 Assessment: Final Case, HR=75 BPM, Rhythm=sr, FOKS=477/80 mmhg, Chest Pain=0, Edema=None, [place] r=Normal, Skin = Warm, Dry Right Pulses: Mayur Ped=2 Left Pulses: Mayur Ped=2 14:19:47 Lower Right Extremities: Color=Normal Lower Left Extremities: Color=Normal Neurological: State=Lethargic, [place] Respiration: Resp=16 B/min, SpO2=96 %, O2=4 lpm 14:20:52 Case End 14:20:52 No case complications noted. 14:20:53 Case complication noted. 14:21:11 Cine recording checked. 14:25:15 Patient moved to stretcher End Study - Contrast Media Used In Study Contrast Total Opened (mL) Total Used (mL) Total Wasted (mL) Unspecified 0 0 0 End Study - Maximum Contrast Load Max Contrast Load (mL) 345.9 End Study - Radiation Exposure Fluoro Time (minutes) 2.8 End Study - Patient Disposition Complications Transferred To Interventional Outcome No Telemetry Bed successful 06/28/2017 2:21:57 PM Financial #: [id number]
--- NOTE | 2017-06-28 14:36 | PD.CARD ---
Atrial Fibrillation Ablation PROCEDURE DATE: Jun 28, 2017 PROCEDURES PERFORMED: 1. Electrophysiology study on Isuprel infusion 2. CS cannulation 3. 3-D mapping 4. Transseptal approach 5. Right and left heart catheterization 6. Intracardiac echo 7. Radiofrequency ablation of atrial fibrillation 8. Pulmonary vein isolation 9. Posterior wall ablation 10. Mitral valve isolation 11. Mitral line creation- 12. Left atrial tachycardia ablation 13. Roof line creation 14. Floor line creation 15. Anterior wall ablation 16. Cardioversion INDICATIONS FOR THE PROCEDURE Mr. Bose is a 72-year-old male with hx of atrial fibrillation, very symptomatic, previous ablations, on anticoagulation referred for electrophysiology study and ablation. The risks, the nature and the benefits of the procedure were clearly stated to him. The risks include pneumothorax, cardiac perforation, stroke, need for open heart surgery and even . The patient understood and agreed to proceed. DESCRIPTION OF THE PROCEDURE IN DETAIL As written informed consent was obtained prior to esophageal echocardiogram, the patient was kept on the table where he was prepped and draped in the usual sterile fashion. Conscious sedation was initiated and maintained throughout the procedure by the anesthesiologist. Once sedation was verified, the right and left inguinal areas were anesthetized with 2% Xylocaine. Using modified Seldinger technique, the left femoral vein was cannulated on three occasions, three guidewires were advanced. Over the wire a 6, 7 and a 10-Kosovan Hemaquet were advanced. Then the left femoral artery was cannulated on one occasion, one guidewire was advanced. Over the wire a 4-Kosovan Hemaquet was advanced. Then the right femoral vein was cannulated on one occasion, one guidewire was advanced. Over the wire a 8-Kosovan Hemaquet was advanced. Then under fluoroscopic guidance through the 6 and 7-Kosovan Hemaquet, two 5-Kosovan Drake curved quadripolar electrophysiology catheters were advanced and placed around the His as well as coronary sinus. Basic interval was measured. The patient was in atrial fibrillation. Through the 10-Kosovan Hemaquet, a Cordis Hernandez AcuNav intracardiac echo catheter was advanced and placed at the right atrium. Multiple view was obtained. There is no pericardial effusion, pulmonary vein was seen, atrial septal was visualized. Then the 8-Kosovan Hemaquet in the right femoral vein was exchanged for Agilis transseptal sheath that was placed all the way to the superior vena cava. Through the sheath a Kiki needle was advanced, then the sheath, the dilator and the needle were progressed until foci engaged. Once engaged, the needle was advanced. RF was delivered for 2 seconds. I was able to cross into the left atrium. Once the needle crossed, the dilator was advanced. Once the dilator crossed, the sheath was advanced. Once the sheath crossed, the dilator and the needle were removed. At this point I did flood the system and fluid movement was seen in the left atrium the indicates the sheath is in good position. The patient already received 10,000 units of heparin. The goal is to keep an ACT around 350 during ablation. Then through the sheath a St. Vern 20 pulse circumferential catheter was advanced. Using [employer] endocardial solution mapping system, a two-dimensional configuration of the left atrium was obtained. Points were taken at the left superior and inferior veins, right superior and inferior veins, mitral valve, and appendages. Then through the sheath a St. Vern TactiCath 65cm 3.5mm irrigated tipped mapping and radiofrequency ablation catheter was advanced. Esophageal probe was placed temperature monitoring during ablation. When it increased to 0.5 degrees Celsius above baseline, I moved to a different area of the atrium. First I did complete the isolation of the left superior and inferior vein. Posterior was ablated. Then a roof line was created, a floor line was created, a mitral line was isolated, then the mitral valve was isolated. At that point the patient was in and off into left atrial tachycardia. I did create a line from the floor to the roof area, passing by the left atrial appendage. The left appendage was isolated .Then the right superior and inferior veins were isolated. I did remap the atrium. There is no significant signal in the atrium. At this point I decided to proceed with cardioversion. A 200 sync biphasic joule was delivered that converted the patient into sinus rhythm. At that point I did advance the circumferential catheter again into the vein. There was no signal into the vein, pacing from the vein showed no conduction to the atrium. Isuprel infusion was initiated at 10 mcg for over 12 minutes. No tachyarrhythmia was induced, post Isuprel no tachyarrhythmia was induced. At that point the procedure was complete. All catheters were removed , atrial septal sheath was exchanged for 9-Kosovan Hemaquet, intracardiac echo showed no pericardial effusion. There is still good flow in the pulmonary vein. The patient is going to be transferred to the recovery room. No incident report. The patient tolerated the procedure. Blood loss was minimal. FINDINGS 1. Electrocardiogram: At baseline the patient was in atrial fibrillation, post procedure the patient was in sinus rhythm. 2. Basic interval: Base cycle length was around 780. Post ablation she was around 950 milliseconds. AH at 100 and HV at 64 milliseconds. 3. Tachyarrhythmia: Atrial fibrillation was mapped and ablated. Atrial tachycardia was ablated. The ablation was successful. CONCLUSION Successful electrophysiology study, mapping, radiofrequency ablation of atrial fibrillation, left atrial tachycardia, pulmonary vein isolation, posterior ablation, mitral valve isolation, mitral line creation, roof line creation, floor line creation, left atrial tachycardia, and cardioversion. COMMENTS AND RECOMMENDATIONS The patient is going to be transferred to the telemetry unit. Will be observed and when stable can be discharged home. If in the future, the patient is back again into atrial fibrillation, dofetelide will be initiated. Not a good candidate for further ablation. Mika Dumont MD Jun 28, 2017 14:35
[2017-06-28] MEDS ORDERED: ATROPINE SULFATE 1 MG/ML VIAL IV PUSH PRN (14:45)
[2017-06-28] MEDS ORDERED: ONDANSETRON HCL 4 MG/2 ML VIAL IV PUSH PRN (14:45)
[2017-06-28] MEDS ORDERED: LIDOCAINE HCL 1% 50 ML VIAL INFIL PRN (14:45)
[2017-06-28] MEDS ORDERED: LORazepam 2 MG/ML VIAL IV PUSH PRN (14:45)
[2017-06-28] MEDS ORDERED: oxyCODONE/ACETAMINOPHEN 5 MG/325 MG TAB PO PRN ×2 (14:45)
[2017-06-28] MEDS ORDERED: SODIUM CHLOR 0.9% 250 ML INJ 250 ML IV PRN (14:45)
[2017-06-28] MEDS ORDERED: BACITRACIN OINT 0.9 GM PKT TOP ONE (14:45)
[2017-06-28] MEDS ORDERED: DO NOT ADM ANY ANTICOAGULANT DRUGS PRN (16:00)
[2017-06-29] VITALS: BP 102/68; PULSE 83; PULSE 86; RESP 20; TEMP 97.7; O2SAT 96
[2017-06-29 01:00] VITALS: PULSE 82
[2017-06-29 02:00] VITALS: PULSE 80
[2017-06-29 03:00] VITALS: PULSE 78
[2017-06-29 04:00] VITALS: BP 104/77; PULSE 77; RESP 18; TEMP 97.9; O2SAT 95
[2017-06-29 05:00] VITALS: PULSE 80
--- NOTE | 2017-06-29 08:15 | PD.CARD.PN ---
Subjective Subjective Remarks Feels okay. Objective Medications Current Medications Medications (Trade) Dose Ordered Sig/Alem Route Start Time Stop Time Status Last Admin Sodium Chloride 500 ml @ 30 mls/hr [id number] IV 06/28/17 11:00 (Ativan) 1 mg V BELT [employer] SL 06/28/17 11:15 07/01/17 11:14 Lactated Ringer's 1,000 ml @ 30 mls/hr Q24H PRN IV 06/28/17 11:15 07/01/17 11:14 Sodium Chloride 500 ml @ 30 mls/hr [id number] PRN IV 06/28/17 11:15 07/01/17 11:14 (Lopressor) 25 mg V [employer] PRN PO 06/28/17 11:15 07/01/17 11:14 (Betadine 5% Antisepsis Kit) 1 applic V [employer] PRN EACH NARE 06/28/17 11:15 07/01/17 11:14 (Chlorhexidine 2% Cloth) 3 pack V [employer] PRN TOPICAL 06/28/17 11:15 07/01/17 11:14 (Percocet 5-325 Mg) 1 tab Q4H PRN PO 06/28/17 14:45 (Percocet 5-325 Mg) 2 tab Q4H PRN PO 06/28/17 14:45 (Ativan Inj) 0.5 mg UNSCH PRN IV PUSH 06/28/17 14:45 06/29/17 14:44 (Atropine Inj) 0.5 mg UNSCH PRN IV PUSH 06/28/17 14:45 Sodium Chloride 250 ml @ 500 mls/hr ONCE PRN IV 06/28/17 14:45 06/29/17 14:44 (Zofran Inj) 4 mg Q4H PRN IV PUSH 06/28/17 14:45 (Xylocaine 1% Inj (50 ml)) 10 ml UNSCH PRN INFIL 06/28/17 14:45 06/29/17 14:44 Miscellaneous Information ALL NURSING DEPARTME... UNSCH PRN .XX 06/28/17 16:00 06/29/17 15:59 Vital Signs / I&O Vital Signs Date Time Temp Pulse Resp B/P (MAP) Pulse Ox O2 Delivery O2 Flow Rate FiO2 06/29/17 05:00 80 06/29/17 04:00 77 06/29/17 04:00 Room Air 06/29/17 04:00 97.9 77 18 104/77 (86) 95 06/29/17 03:00 78 06/29/17 02:00 80 06/29/17 01:00 82 06/29/17 00:00 Room Air 06/29/17 00:00 97.7 86 20 102/68 (79) 96 06/29/17 00:00 83 06/28/17 23:00 82 06/28/17 22:00 80 06/28/17 21:00 84 06/28/17 20:00 Room Air 06/28/17 20:00 97.8 87 20 98/70 (79) 96 06/28/17 20:00 81 06/28/17 19:00 70 06/28/17 17:15 98.0 76 20 111/82 (92) 97 06/28/17 16:30 71 14 109/74 (86) 100 Nasal Cannula 2 06/28/17 15:30 67 14 110/76 (87) 100 Nasal Cannula 2 06/28/17 15:15 97.6 69 14 112/76 (88) 100 Nasal Cannula 2 06/28/17 15:00 68 14 114/80 (91) 100 Nasal Cannula 2 06/28/17 14:45 68 14 117/79 (92) 100 Nasal Cannula 2 06/28/17 14:32 96.9 72 14 139/86 (103) 98 Nasal Cannula 2 06/28/17 11:24 97.8 87 18 112/85 (94) 96 I/O 06/28/17 06/28/17 06/28/17 06/29/17 06/29/17 06/29/17 07:00 15:00 23:00 07:00 15:00 23:00 Intake Total 1000 ml 240 ml 480 ml Output Total 3 ml Balance 1000 ml 240 ml 477 ml Intake Oral 240 ml 480 ml IV Total 1000 ml Output Urine Total 3 ml Physical Exam GENERAL: Well-nourished, well-developed patient. SKIN: Warm and dry. Groin sites soft without bruising or bleeding. HEAD: Normocephalic. EYES: No scleral icterus. No injection or drainage. NECK: Supple, trachea midline. No JVD or lymphadenopathy. CARDIOVASCULAR: Regular rate and rhythm without murmurs, gallops, or rubs. RESPIRATORY: Breath sounds equal bilaterally. No accessory muscle use. GASTROINTESTINAL: Abdomen soft, non-tender, nondistended. EXTREMITIES: No cyanosis, or edema. NEUROLOGICAL: Awake, alert, and oriented x 3. Non-focal. Laboratory Laboratory Tests Test 06/28/17 10:45 White Blood Count 5.8 TH/MM3 Red Blood Count 5.82 MIL/MM3 Hemoglobin 18.0 GM/DL Hematocrit 51.1 % Mean Corpuscular Volume 87.9 FL Mean Corpuscular Hemoglobin 30.9 PG Mean Corpuscular Hemoglobin Concent 35.1 % Red Cell Distribution Width 15.2 % Platelet Count 188 TH/MM3 Mean Platelet Volume 8.9 FL Neutrophils (%) (Auto) 57.0 % Lymphocytes (%) (Auto) 25.9 % Monocytes (%) (Auto) 14.5 % Eosinophils (%) (Auto) 1.1 % Basophils (%) (Auto) 1.5 % Neutrophils # (Auto) 3.3 TH/MM3 Lymphocytes # (Auto) 1.5 TH/MM3 Monocytes # (Auto) 0.8 TH/MM3 Eosinophils # (Auto) 0.1 TH/MM3 Basophils # (Auto) 0.1 TH/MM3 CBC Comment DIFF FINAL Differential Comment Prothrombin Time 10.7 SEC Prothromb Time International Ratio 1.1 RATIO Activated Partial Thromboplast Time 23.6 SEC Blood Urea Nitrogen 21 MG/DL Creatinine 1.06 MG/DL Random Glucose 91 MG/DL Calcium Level 9.1 MG/DL Sodium Level 134 MEQ/L Potassium Level 3.8 MEQ/L Chloride Level 100 MEQ/L Carbon Dioxide Level 27.9 MEQ/L Anion Gap 6 MEQ/L Estimat Glomerular Filtration Rate 69 ML/MIN Assessment and Plan Problem List: (1) Atrial fibrillation ICD Codes: I48.91 - Unspecified atrial fibrillation Plan: Sinus rhythm on telemetry. (2) S/P ablation of atrial fibrillation ICD Codes: Z98.890 - Other specified postprocedural states; Z86.79 - Personal history of other diseases of the circulatory system Plan: Stable for discharge home. Follow-up with Dr. Dumont in 3 weeks per my discussion with him. Deepthi Cao Jun 29, 2017 08:15
--- NOTE | 2017-06-29 15:27 | EKG ---
Date Performed: 06/29/2017 Time Performed: 04:29:04 PTAGE: 72 years EKG: Sinus rhythm with 1st degree A-V block Possible anteroseptal infarct - age undetermined Low QRS voltages in limb leads Abnormal ECG PREVIOUS TRACING : 06/28/2017 14.59 DOCTOR: Tone Willoughby Interpretating Date/Time 06/29/2017 15:25:36
--- NOTE | 2017-06-29 15:43 | EKG ---
Date Performed: 06/28/2017 Time Performed: 14:59:13 PTAGE: 72 years EKG: Sinus rhythm WITH FIRST DEGREE AV BLOCK LOW QRS VOLTAGE IN EXTREMITY LEADS SEPTAL MYOCARDIAL INFARCTION , PROBABL Y OLD ABNORMAL ECG PREVIOUS TRACING : 06/28/2017 11.27 DOCTOR: Tone Willouhgby Interpretating Date/Time 06/29/2017 15:41:39
--- NOTE | 2017-06-29 16:05 | EKG ---
Date Performed: 06/28/2017 Time Performed: 11:27:08 PTAGE: 72 years EKG: Atrial fibrillation Prolonged QT interval Possible anteroseptal infarct - age undetermined Inferior T wave changes are nonspecific Generalized low QRS voltages Abnormal ECG PREVIOUS TRACING : 04/13/2017 04.17 DOCTOR: Tone Willoughby Interpretating Date/Time 06/29/2017 16:03:45
== END 2017-06-29 09:04 | disposition home or self-care (01) ==
LOC: HDIC 10:02 → HDOC 10:02 → HCIS 17:02 → HDOC 06-29 09:04
PROVIDERS: ATTEND Internal Medicine Interventional Cardiology
DX: I48.0 Paroxysmal atrial fibrillation (principal); I47.1 Supraventricular tachycardia; I44.0 Atrioventricular block, first degree; I11.9 Hypertensive heart disease without heart failure; I25.10 Atherosclerotic heart disease of native coronary artery without angina pectoris; Z79.01 Long term (current) use of anticoagulants
CPT/HCPCS: 00537; 80048; 85002; 85025; 85610; 85730; 86850; 86900; 86901; 92960; 93005; 93312; 93320; 93325; 93613; 93623; 93656; 93662; C1730; C1731; C1732; C1759; C1766; C2630; J1100; J1644; J2370; J2405; J2720; J3010

== ENCOUNTER 2017-10-01 09:57 | Emergency (ER) | payer OTHER ==
[2017-10-01 10:01] VITALS: BP 109/73; PULSE 79; RESP 16; TEMP 97.9; O2SAT 97
== END 2017-10-01 10:22 | disposition left against medical advice (07) ==
LOC: NEPD 09:57
DX: R04.0 Epistaxis (principal)
CPT/HCPCS: 99281